=== PATIENT | female | born 1940 | race Caucasian/White ===

== ENCOUNTER 2017-04-26 12:04 | Emergency (ER) | payer MEDICARE ==
[~2017-04-26] VITALS: Wt 45.4 kg
[~2017-04-26 12:04] MED LIST: ASPIRIN325 MG PO; LIPITOR40 MG PO; MOBIC7.5 MG PO; VITAMIN B122500 MCG PO; VITAMIN D34000 UNIT PO
[2017-04-26] MEDS ORDERED: NORCO 5-325 TA1 EACH PO (13:11)
== END 2017-04-26 14:02 | disposition home or self-care (01) ==
LOC: ED 12:04
PROC: 0RS Upper Joints, Reposition (ICD-10-PCS; principal; 2017-04-26)
DX: S52.501A Unspecified fracture of the lower end of right radius, initial encounter for closed fracture (principal); S01.511A Laceration without foreign body of lip, initial encounter; Z88.5 Allergy status to narcotic agent; Z79.82 Long term (current) use of aspirin; Z93.3 Colostomy status; W18.30XA Fall on same level, unspecified, initial encounter
CPT/HCPCS: 25605; 73110; 99283

== ENCOUNTER 2017-04-28 06:55 | Day surgery (SDC) | payer MEDICARE ==
[~2017-04-28] VITALS: Ht 147.3 cm; Wt 42.6 kg
[~2017-04-28 06:55] MED LIST changes: +NORCO 5-325 TA1 EACH PO
--- NOTE | 2017-04-28 09:08 | NUR ---
04/28/17 0907 Priya Moore REPORT FROM PANEL MACHINE TENDER.
--- NOTE | 2017-05-10 09:13 | OR ---
[facility] [address] [place], [place] [address] Signed DATE OF PROCEDURE: 04/28/17 PREOPERATIVE DIAGNOSIS Comminuted displaced distal radial fracture, right. POSTOPERATIVE DIAGNOSIS Comminuted displaced distal radial fracture, right. PROCEDURE Open reduction and internal fixation with distal volar radial plate. SURGEON: Pasha Jenkins MD ANESTHESIA: Axillary block with some sedation. SPECIMENS: None. COMPLICATIONS: None. TOURNIQUET TIME: About 40 minutes. DESCRIPTION OF PROCEDURE The patient was taken to the operating room. After anesthesia was induced and the airway was gently supported, the patient's right upper extremity was positioned, prepped and draped in a routine sterile fashion. The arm was exsanguinated with an Esmarch bandage. Pneumatic tourniquet was inflated to 250 mmHg pressure. We then made a volar incision beginning at the distal wrist flexion crease and extending proximally along the FCR tendon. Skin was divided sharply. Subcutaneous tissue was bluntly spread. The FCR tendon was identified and gently swept in an ulnar direction along with the rest of the volar contents. We elevated a small portion of the pronator from the distal radius and thus exposed the fracture. The fracture was then reduced under direct vision and an 8 x 4 hole distal volar radial plate was positioned under fluoroscopic control. We secured it proximally with four 2.7 mm screws and then distally with four 1.8 mm smooth buttress pins. AP and lateral fluoroscopy seemed to confirm excellent reduction and stable construct with good alignment and position. The wound was gently irrigated and closed in a standard fashion. A sterile dressing and a volar splint were placed. The patient was awakened to the recovery room where he arrived in stable condition. Counts were correct and antibiotic protocols were followed. Electronically Signed By: PASHA JENKINS MD 05/10/17 0913 PATIENT NAME: VIJAY ARROYO OPERATIVE REPORT DATE OF : 38 PHYSICIAN: PASHA JENKINS MD REPORT #: [id number] REPORT IS CONFIDENTIAL AND NOT TO BE RELEASED WITHOUT AUTHORIZATION [address] [place], [place] [address] Signed Pasha Jenkins MD WFTrish/Jonel /[id number] cc: Scot Vieira MD Electronically Signed By: PASHA JENKINS MD 05/10/17 0913 PATIENT NAME: VIJAY ARROYO OPERATIVE REPORT DATE OF : 38 PHYSICIAN: PASHA JENKINS MD REPORT #: [id number] REPORT IS CONFIDENTIAL AND NOT TO BE RELEASED WITHOUT AUTHORIZATION
== END 2017-04-28 10:21 | disposition home or self-care (01) ==
LOC: OPS 06:55 → DS 06:55 → OPS 08:15
PROVIDERS: Orthopaedic Surgery
PROC: 0PSH04Z Reposition Right Radius with Internal Fixation Device, Open Approach (ICD-10-PCS; principal; 2017-04-28 08:15)
DX: S52.501A Unspecified fracture of the lower end of right radius, initial encounter for closed fracture (principal); W01.0XXA Fall on same level from slipping, tripping and stumbling without subsequent striking against object, initial encounter; Z88.5 Allergy status to narcotic agent
CPT/HCPCS: 01830; 64417; 73100; 76942; C1713; J0690; J1100; J2250; J2405; J2704; J2795; J3010; J7120

== ENCOUNTER 2017-05-13 20:58 | Emergency (ER) | payer MEDICARE ==
[~2017-05-13] VITALS: Ht 144.8 cm; Wt 42.6 kg
[2017-05-13] MEDS ORDERED: ASPIRIN81 MG PO (21:23)
[2017-05-14] MEDS ORDERED: MACROBID 100 M100 MG PO (01:06)
--- NOTE | 2017-05-14 08:38 | EKG ---
[facility] [address] [facility] [place], [place] [address] Signed Sinus bradycardia Otherwise normal ECG No previous ECGs available Confirmed by MANASA VASQUEZ MD ([id number]) on 05/14/2017 8:38:39 AM Electronically Signed By: MANASA VASQUEZ MD 05/14/17 0838 PATIENT NAME: VIJAY ARROYO Electrocardiogram DATE OF : 38 PHYSICIAN: MANASA VASQUEZ MD REPORT #: [id number] REPORT IS CONFIDENTIAL AND NOT TO BE RELEASED WITHOUT AUTHORIZATION
== END 2017-05-14 01:25 | disposition home or self-care (01) ==
LOC: ED 20:58
PROC: 0T9B70Z Drainage of Bladder with Drainage Device, Via Natural or Artificial Opening (ICD-10-PCS; principal; 2017-05-13)
DX: R41.82 Altered mental status, unspecified (principal); N39.0 Urinary tract infection, site not specified; Z93.3 Colostomy status; Z98.890 Other specified postprocedural states; Z88.5 Allergy status to narcotic agent; Z79.82 Long term (current) use of aspirin; Z90.49 Acquired absence of other specified parts of digestive tract
CPT/HCPCS: 36415; 51701; 70450; 71010; 81001; 85025; 87088; 93005; 93010; 99284

== ENCOUNTER 2017-12-01 08:49 | Day surgery (SDC) | payer MEDICARE ==
[~2017-12-01] VITALS: Ht 170.2 cm; Wt 44.5 kg
[~2017-12-01 08:49] MED LIST changes: +ASPIRIN81 MG PO; +MACROBID 100 M100 MG PO
[2017-12-01] MEDS ORDERED: ONCE DAILY1 EACH PO (09:13)
[2017-12-01] MEDS ORDERED: VITAMIN D2000 UNI1 PO (09:14)
[2017-12-01] MEDS ORDERED: VITAMIN B-12500 MCG PO (09:14)
[2017-12-01] MEDS ORDERED: OMEPRAZOLE20 MG PO (09:15)
--- NOTE | 2017-12-01 10:54 | NUR ---
12/01/17 1054 Verna Shay 1046 PT ARRIVED DRWOSY AND TALKING. OSTOMY IS CLEAN AND STOMA IS PICK. 1048 PT BACK TO SLEEP.
--- NOTE | 2017-12-02 11:45 | OR ---
[facility] [address] [place], [place] [address] Signed DATE OF OPERATION: 12/01/2017 SURGEON: Ranjit Allen MD UPPER AND LOWER ENDOSCOPY REPORT PREOPERATIVE DIAGNOSES: 1. Anemia. 2. Melena. 3. Gastritis. 4. Villagomez's esophagus. 5. 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 POSTOPERATIVE DIAGNOSES: 1. Distal esophageal tear. 2. Moderate hiatal hernia. 3. Unremarkable colonoscopy. PROCEDURES: 1. EGD with CLOtest and biopsies of the antrum and GE junction and esophageal tear. 2. Colonoscopy without biopsy. ESTIMATED BLOOD LOSS: None. INDICATIONS: Vijay is a 77-year-old lady who I have known for quite a few years. She originally had rectal prolapse and ended up with several surgeries and finally a colostomy in the left upper quadrant. Her transverse colon still prolapses, but it is easily reduced and she has been able to deal with it on a more conservative basis. She is also known to have a history of gastritis with Villagomez's esophagus. More recently, she was having melena through the ostomy site and when her hemoglobin was checked, it was down to 7.9. Her primary care provider sent her into the hospital yesterday for 2 units of packed red blood cells. I had been called and I met Vijay here in the hospital yesterday and we talked and did her history and physical here in the hospital. She comes today then for the upper and lower endoscopy. She says she is feeling better after the 2 units of packed red blood cells. Vijay is very familiar with upper and lower endoscopy. She understands there is risk including, but not limited to gas, bloating, crampy abdominal pain, bleeding, perforation, requiring surgery, and missed diagnosis. She also understands the need for IV conscious sedation. She has expressed understanding wishes Electronically Signed By: RANJIT ALLEN MD 12/02/17 9753 PATIENT NAME: VIJAY ARROYO OPERATIVE REPORT DATE OF : 38 REPORT #: [id number] PHYSICIAN: RANJIT ALLEN MD PCP: CAIO NELSON MD REPORT IS CONFIDENTIAL AND NOT TO BE RELEASED WITHOUT AUTHORIZATION [facility] [address] [place], [place] [address] Signed to proceed. DESCRIPTION OF PROCEDURE: Vijay was taken into our endoscopy suite and placed in the supine semi-recumbent position. For both cases, she was given a total of 4 mg of Versed and 50 mcg of fentanyl. The posterior oropharynx was anesthetized with Hurricaine spray. A bite block was utilized for the case. The adult gastroscope was introduced and advanced under direct visualization of camera, out into the third portion of the duodenum without difficulty. We very carefully examined the duodenum and pyloric channel and found to be unremarkable. However, the stomach did have some old dry blood in it. We looked very carefully around the antrum, incisura body and fundus of the stomach. We could not find any source of bleeding in the stomach itself. There is no ulceration. No serious gastritis to speak of. We went ahead and took biopsies of the antrum for pathologic review as well as CLOtest. Upon retroflexion of the scope, we could easily see her moderate-sized hiatal hernia. We looked carefully around the hiatal hernia and we withdrew the scope up through the area of the hiatal hernia. We looked very carefully and never found a Zita Chaney tear. She does have disruption to the Z-line and so we took a biopsy at the Z-line and then just to the one side, we saw a tear just around at or slightly above the Z-line. I think this has probably been the source of her bleeding. There may or may not have been an ulcer associated with it. We went and took a biopsy of that area. Above this, the esophagus was completely unremarkable. This is the only area we found that would have resulted in bleeding. After this, the gas was suctioned out and the gastroscope removed. Vijay tolerated the procedure quite well. Vijay was then placed in the supine position. We removed her ostomy bag and I was able to easily reduce her prolapse. A digital rectal exam was otherwise unremarkable. We then placed our adult colonoscope through the ostomy and we carefully advanced it over to the cecum itself. We could easily see the pilot point's foot, the appendiceal orifice, and the ileocecal valve. There was fresh clean green bile coming in through the small intestine. The scope was slowly withdrawn. We saw no lesions throughout her colon. After this, the gas was suctioned out and the colonoscope removed. Vijay's colostomy bag was then replaced. She was then taken into recovery room in stable condition. RECOMMENDATIONS: Vijay has already stopped her aspirin and she has been on her Prilosec. I think in due time the esophageal tear is going to heal just fine. I will see her back in the office in a week or so for followup. Ranjit Allen MD Electronically Signed By: RANJIT ALLEN MD 12/02/17 1145 PATIENT NAME: VIJAY ARROYO OPERATIVE REPORT DATE OF : 38 REPORT #: [id number] PHYSICIAN: RANJIT ALLEN MD PCP: CAIO NELSON MD REPORT IS CONFIDENTIAL AND NOT TO BE RELEASED WITHOUT AUTHORIZATION [facility] [address] [place] [address] Signed ALB/MODL /[id number] cc: MD Ranjit Alegre MD Copies: CAIO NELSON MD, ANDREW L MD ~ Electronically Signed By: RANJIT ALLEN MD 12/02/17 1145 PATIENT NAME: VIJAY ARROYO OPERATIVE REPORT DATE OF : 38 REPORT #: [id number] PHYSICIAN: RANJIT ALLEN MD PCP: CAIO NELSON MD REPORT IS CONFIDENTIAL AND NOT TO BE RELEASED WITHOUT AUTHORIZATION
== END 2017-12-01 12:07 | disposition home or self-care (01) ==
LOC: OPS 08:49 → DS 08:49 → OPS 10:30 → DS 10:30 → OPS 12:07
PROVIDERS: Colon & Rectal Surgery
PROC: 0DB78ZX Excision of Stomach, Pylorus, Via Natural or Artificial Opening Endoscopic, Diagnostic (ICD-10-PCS; 2017-12-01)
PROC: 0DB38ZX Excision of Lower Esophagus, Via Natural or Artificial Opening Endoscopic, Diagnostic (ICD-10-PCS; 2017-12-01)
PROC: 0DJD8ZZ Inspection of Lower Intestinal Tract, Via Natural or Artificial Opening Endoscopic (ICD-10-PCS; principal; 2017-12-01 10:30)
PROC: 0DB48ZX Excision of Esophagogastric Junction, Via Natural or Artificial Opening Endoscopic, Diagnostic (ICD-10-PCS; 2017-12-01 10:30)
DX: K92.1 Melena (principal); K29.50 Unspecified chronic gastritis without bleeding; K22.10 Ulcer of esophagus without bleeding; K44.9 Diaphragmatic hernia without obstruction or gangrene; D50.0 Iron deficiency anemia secondary to blood loss (chronic); K21.9 Gastro-esophageal reflux disease without esophagitis; Z98.890 Other specified postprocedural states; Z88.5 Allergy status to narcotic agent; Z79.82 Long term (current) use of aspirin; Z79.52 Long term (current) use of systemic steroids; Z79.899 Other long term (current) drug therapy
CPT/HCPCS: 86677; 88305; 88312; 99153; G0500; J2250; J3010; J7120

== ENCOUNTER 2017-12-02 19:48 | Emergency (ER) | payer MEDICARE ==
[~2017-12-02] VITALS: Ht 147.3 cm; Wt 44.5 kg
--- OUTSIDE RECORDS SUMMARY | ~2017-12-02 | XMS | Clinical Summary ---
Demographics + + + | Address | [address] | | | [place] [address] | + + + | Home Phone | | + + + | Preferred Language | Unknown | + + + | Marital Status | | + + + | Catholic Affiliation | CHR | + + + | Race | White | + + + | Ethnic Group | Not or | + + + Author + + + | Author | [facility] | + + + | Organization | [facility] | + + + [...] Team Providers + +------+ + | Care Cloud Solutions Architect Name | Role | Phone | + +------+ + | Scot Vieira MD | PP | | + +------+ + Source Comments PR[facility]A is fully live on both EpicCare Ambulatory and EpicCare InPatient.[facility] Allergies + + + + + + [...] | | + + + +---------+------+------+-------+ | [place]-3 Fatty | Take 1 capsule by | [...] 07/19/2007 | | | (FLU SHOT) | 7 | | | + + + + + Results Not on filefrom Last 3 Months
--- OUTSIDE RECORDS SUMMARY | ~2017-12-02 | XMS | Clinical Summary ---
Demographics + + + | Address | [address] | | | [place] [address] | + + + | Home Phone | | + + + | Preferred Language | Unknown | + + + | Marital Status | | + + + | Sabianism Affiliation | CHR | + + + | Race | White | + + + | Ethnic Group | Not or | + + + Author + + + | Author | [facility] | + + + | Organization | [facility] | + + [...] Team Providers + +------+ + | Care Welder Tool And Die Name | Role | Phone | + +------+ + | Scot Veiira MD | PP | | + +------+ + Source Comments PR[facility] is fully live on both EpicCare Ambulatory and EpicCare InPatient.[facility] Allergies + + + + + + [...] | | + + + +---------+------+------+-------+ | [place]-3 Fatty | Take 1 capsule by | [...]
[~2017-12-02 19:48] MED LIST changes: +OMEPRAZOLE20 MG PO; +ONCE DAILY1 EACH PO; +VITAMIN B-12500 MCG PO; +VITAMIN D2000 UNI1 PO
--- NOTE | 2017-12-03 05:44 | EKG ---
[facility] [address] [facility] [place], [place] [address] Signed Normal sinus rhythm Normal ECG When compared with ECG of 13-MAY-2017 21:50, No significant change was found Confirmed by GERALDINE PÉREZ MD ([id number]) on 12/03/2017 5:44:01 AM Electronically Signed By: GERALDINE PÉREZ MD 12/03/17 0544 PATIENT NAME: LALA ARROYOZORA BRUNO Electrocardiogram DATE OF : 38 PHYSICIAN: GERALDINE PÉREZ MD REPORT #: [id number] REPORT IS CONFIDENTIAL AND NOT TO BE RELEASED WITHOUT AUTHORIZATION
== END 2017-12-02 22:43 | disposition home or self-care (01) ==
LOC: ED 19:48
DX: E83.51 Hypocalcemia (principal); R07.89 Other chest pain; Z88.5 Allergy status to narcotic agent; Z79.899 Other long term (current) drug therapy
CPT/HCPCS: 70450; 71045; 80053; 85025; 85610; 85730; 93005; 93010; 99284

== ENCOUNTER 2017-12-30 10:22 | Emergency (ER) | payer MEDICARE ==
[~2017-12-30] VITALS: Ht 147.3 cm; Wt 44.5 kg
--- OUTSIDE RECORDS SUMMARY | ~2017-12-30 | XMS | Clinical Summary ---
Demographics + + + | Address | [address] | | | [place] [address] | + + + | Home Phone | | + + + | Preferred Language | Unknown | + + + | Marital Status | | + + + | Hoahaoism Affiliation | CHR | + + + | Race | White | + + + | Ethnic Group | Not or | + + + Author + + + | Author | [facility] | + + + | Organization | [facility] | + + + | Address | Unknown | + + + | Phone | Unavailable | + + + Support + + +---------+ + | Name | Relationship | Address | Phone | + + +---------+ + | MALU BUTLER | ECON | Unknown | | + + +---------+ + | TONI ARROYO | ECON | Unknown | | + + +---------+ + Care Team Providers + +------+ + | Care Robotic Maintenance Technician Name | Role | Phone | + +------+ + | Scot Vieira MD | PP | | + +------+ + Source Comments PR[facility]ILA is fully live on both EpicCare Ambulatory and EpicCare InPatient.[facility] Allergies + + + + + + | Active Allergy | Reactions | Severity | Noted | Comments | | | | | Date | | + + + + + + | Codeine | | | 04/29/20 | Pt states "makes | | | | | 08 | me disoriented" | + + + + + + Current Medications + + + +---------+------+------+-------+ | Prescription | Sig. | Disp. | Refills | Star | End | Statu | | | | | | t | Date | s | | | | | | Date | | | + + + +---------+------+------+-------+ | aspirin chewable | Chew and swallow 81 | | | | | Activ | | 81 mg oral | mg once daily. | | | | | e | | tablet,chewable | | | | | | | + + + +---------+------+------+-------+ | FOLIC ACID/VIT | Take by mouth once | | | | | Activ | | BCOMP,C (B | daily. | | | | | e | | COMPLEX-VITAMIN | | | | | | | | C-FOLIC ACID) 400 | | | | | | | | mcg oral tablet | | | | | | | + + + +---------+------+------+-------+ | VITAMIN E, | Take 1 capsule by | | | | | Activ | | DL,TOCOPHERYL ACET, | mouth once daily. | | | | | e | | (DL-VITAMIN E | | | | | | | | ACETATE) 100 unit | | | | | | | | oral capsule | | | | | | | + + + +---------+------+------+-------+ | cyanocobalamin | Take 1,000 mcg by | | | | | Activ | | (VITAMIN B-12) 1,000 | mouth once daily. | | | | | e | | mcg oral tablet | | | | | | | + + + +---------+------+------+-------+ | pyridoxine, | Take 25 mg by mouth | | | | | Activ | | vitamin B6, 25 mg | once daily. | | | | | e | | oral tablet | | | | | | | + + + +---------+------+------+-------+ | CALCIUM-MAG | Take 1 tablet by | | | | | Activ | | OXIDE-VITAMIN D3 | mouth once daily. | | | | | e | | ORAL | | | | | | | + + + +---------+------+------+-------+ | [place]-3 Fatty | Take 1 capsule by | | | | | Activ | | Acids (FISH OIL) 300 | mouth once daily. | | | | | e | | mg oral capsule | | | | | | | + + + +---------+------+------+-------+ | Cholecalciferol, | Take 5,000 Units by | | | | | Activ | | Vitamin D3, 5,000 | mouth once daily. 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/2009 | + + + | Inguinal hernia | 12/08/2009 | + + + | UTI (urinary tract infection) | 06/26/2008 | + + + + + | Overview: ICD10 | + + + + + | Rectal prolapse | 04/29/2008 | + + + Family History + + +------+ + | Medical History | Relation | Name | Comments | + + +------+ + | Diabetes | Mother | | | + + +------+ + | Non-contributory | Mother | | emphysema, smoker | + + +------+ + | Cancer | Other | | no colorectal cancer or polyps, no cancer | | | | | of any kind | + + +------+ + + +------+--------+ + | Relation | Name | Status | Comments | + +------+--------+ + | Mother | | | | + +------+--------+ + | Other | | | | + +------+--------+ + Social History + +-------+ +--------+------+ | Tobacco Use | Types | Packs/Day | Years | Date | | | | | Used | | + +-------+ +--------+------+ | Never Smoker | | | | | + +-------+ +--------+------+ + +---+---+---+ | Smokeless Tobacco: | | | | | Never Used | | | | + +---+---+---+ + + +---------+ + | Alcohol Use | Drinks/We | oz/Week | Comments | | | ek | | | + + +---------+ + | No | 0 | 0.0 | | | | Standard | | | | | drinks or | | | | | | | | | | equivalen | | | | | t | | | + + +---------+ + + + + | Sex Assigned at | Date Recorded | | | | + + + | Not on file | | + + + Last Filed Vital Signs + + + + | Vital Sign | Reading | Time Taken | + + + + | Blood Pressure | 110/73 | 06/05/2016 8:30 AM PDT | + + + + | Pulse | 66 | 06/05/2016 8:30 AM PDT | + + + + | Temperature | 36.8 C (98.2 F) | 06/05/2016 8:30 AM PDT | + + + + | Respiratory Rate | 15 | 06/05/2016 8:30 AM PDT | + + + + | Oxygen Saturation | 98% | 06/05/2016 8:30 AM PDT | + + + + | Inhaled Oxygen | - | - | | Concentration | | | + + + + | Weight | 45.6 kg (100 lb 8.5 | 06/03/2016 4:33 AM PDT | | | oz) | | + + + + | Height | 147.3 cm (4' 10") | 06/01/2016 3:59 PM PDT | + + + + | Body Mass Index | 21.01 | 06/03/2016 4:33 AM PDT | + + + + Plan of Treatment + + + + + | Health Maintenance | Due Date | Last Done | Comments | + + + + + | MAMMOGRAM | | | | | | 9 | | | + + + + + | PNEUMOCOCCAL ADULT | | | | | (1 of 2 - PCV13) | 4 | | | + + + + + | INFLUENZA VACCINE | | 07/19/2007 | | | (FLU SHOT) | 8 | | | + + + + + Results Not on filefrom Last 3 Months
--- OUTSIDE RECORDS SUMMARY | ~2017-12-30 | XMS | Clinical Summary ---
Demographics + + + | Address | [address] | | | [place] [address] | + + + | Home Phone | | + + + | Preferred Language | Unknown | + + + | Marital Status | Single | + + + | Rastafarian Affiliation | 1013 | + + + | Race | Unknown | + + + | Ethnic Group | Unknown | + + + Author + + + | Author | [facility] | | | and [place] | + + + | Organization | [facility] | | | and [place] | + + + | Address | Unknown | + + + | Phone | Unavailable | + + + Support + + + + + | Name | Relationship | Address | Phone | + + + + + | Gabrielle Patel | ECON | [place] | | + + + + + Care Team Providers + +------+ + | Care Museum Preparator Name | Role | Phone | + +------+ + | Scot Vieira MD | PP | | + +------+ + Allergies + + + + + + | Active Allergy | Reactions | Severity | Noted | Comments | | | | | Date | | + + + + + + | Codeine | Other (See Comments) | | 02/22/20 | Disoriented | | | | | 16 | | + + + + + + Current Medications + + +-------+---------+------+------+-------+ | Prescription | Sig. | Disp. | Refills | Star | End | Statu | | | | | | t | Date | s | | | | | | Date | | | + + +-------+---------+------+------+-------+ | aspirin 81 mg | Take 81 mg by mouth | | | | | Activ | | chewable tablet | Daily. | | | | | e | + + +-------+---------+------+------+-------+ | MULTIPLE VITAMINS | Take by mouth. | | | | | Activ | | PO | | | | | | e | + + +-------+---------+------+------+-------+ | folic acid-vitamin | Take 2 tablets by | | | | | Activ | | B6-vitamin B12 | mouth Daily. | | | | | e | | (FOLTAB) | | | | | | | | 0.8-10-0.115 mg TABS | | | | | | | + + +-------+---------+------+------+-------+ | tocopherol | Take 100 Units by | | | | | Activ | | (VITAMIN E) 100 | mouth Daily. | | | | | e | | units capsule | | | | | | | + + +-------+---------+------+------+-------+ Active Problems + + | Patient Care Coordination Note | + + | Insulin Ab negative | + + + + + | Problem | Noted Date | + + + | Hypoglycemia | 02/22/2016 | + + + | Hypokalemia | 02/22/2016 | + + + | Rectal prolapse | 02/22/2016 | + + + | Gastric distention | 02/22/2016 | + + + Family History + + +------+ + | Medical History | Relation | Name | Comments | + + +------+ + | Diabetes | Mother | | | + + +------+ + | Heart failure | Mother | | | + + +------+ + + +------+ + + | Relation | Name | Status | Comments | + +------+ + + | Father | | | does not know medical history | + +------+ + + | Mother | | | | + +------+ + + | Sister | | Alive | healthy | + +------+ + + Social History + +-------+ +--------+------+ | Tobacco Use | Types | Packs/Day | Years | Date | | | | | Used | | + +-------+ +--------+------+ | Never Smoker | | | | | + +-------+ +--------+------+ + + +---------+ + | Alcohol Use | Drinks/We | oz/Week | Comments | | | ek | | | + + +---------+ + | No | 0 | 0.0 | Was a social drinker when younger | | | Standard | | | [...] + + + | Blood Pressure | 123/84 | 02/24/2016 0800 PDT | + + + + | Pulse | 60 | 02/24/2016799 PDT | + + + + | Temperature | 36.1 C (96.9 F) | 02/24/2016799 PDT | + + + + | Respiratory Rate | 18 | 02/24/2016799 PDT | + + + + | Oxygen Saturation | 93% | 02/24/2016799 PDT | + + + + | Inhaled Oxygen | - | - | | Concentration | | | + + + + | Weight | 47 kg (103 lb 9.9 | 02/22/20163 PDT | | | oz) | | + + + + | Height | 149.9 cm (4' 11.02") | 02/22/20162117 PDT | + + + + | Body Mass Index | 20.92 | 02/22/20162212 PDT | + + + + Plan of Treatment + + + + + | Health Maintenance | Due Date | Last Done | Comments | + + + + + | Vaccine: | | | | | Dtap/Tdap/Td (1 - | 8 | | | | Tdap) | | | | + + + + + | Vaccine: Zoster (#1) | | | | | | 9 | | | + + + + + | Vaccine: | | | | | Pneumococcal 65+ | 4 | | | | Low/Medium Risk (1 | | | | | of 2 - PCV13) | | | | + + + + + | Vaccine: Influenza | | | | | (Season Ended) | 8 | | | + + + + + Results Not on filefrom Last 3 Months Insurance + +--------+ +--------+ +---------+ | Payer | Benefi | Subscriber | Type | Phone | Address | | | t Plan | ID | | | | | | / | | | | | | | Group | | | | | + +--------+ +--------+ +---------+ | MEDICARE | MEDICA | xxxxxxxxxx | Medica | [phone] | | | RE | | re | [phone] | | | | PART A | | | | | | | AND B | | | | | + +--------+ +--------+ +---------+ | BCBS | BCBS | [phone] | PPO | | | | | OUT OF | xxx | | | | | | STATE | | | | | | | PPO | | | | | + +--------+ +--------+ +---------+ + +--------+ +--------+ + + | Guarantor Name | Accoun | Relation to | Date | Phone | Billing Address | | | t Type | Patient | of | | | | | | | | | | + +--------+ +--------+ + + | VIJAY ARROYO | Person | Self [birth year] Home: | [address] | | | al/Fam | | 1940 | [phone] | [place] [address] | | | timothy | | | 1823 | | + +--------+ +--------+ + +
--- OUTSIDE RECORDS SUMMARY | ~2017-12-30 | XMS | Clinical Summary ---
Demographics + + + | Address | [address] | | | [place] [address] | + + + | Home Phone | | + + + | Preferred Language | Unknown | + + + | Marital Status | Single | + + + | Islam Affiliation | 1013 | + + + | Race | Unknown | + + + | Ethnic Group | Unknown | + + + Author + + + | Author | [facility] | | | and [place] | + + + | Organization | [facility] | | | and [place] | [...] Team Providers + +------+ + | Care Health Diagnostics Teacher Name | Role | Phone | + [...] | Self | [birth year] | Home: | [address] | | | al/Fam | | 1940 | [phone] | [place] [address] | | | timothy | | | 1823 | | + +--------+ +--------+ + +
--- OUTSIDE RECORDS SUMMARY | ~2017-12-30 | XMS | Clinical Summary ---
Demographics + + + | Address | [address] | | | [place] [address] | + + + | Home Phone | | + + + | Preferred Language | Unknown | + + + | Marital Status | | + + + | Adventism Affiliation | Unknown | + + + | Race | Unknown | + + + | Ethnic Group | Unknown | + + + Author + + + | Author | [facility] | + + + | Organization | [facility] | + + + | Address | Unknown | + + + | Phone | Unavailable | + + + Support + + + + + | Name | Relationship | Address | Phone | + + + + + | Cruz Lord | ECON | [place] | | | | | [address] | | + + + + + Care Team Providers + +------+ + | Care Second Helper Name | Role | Phone | + +------+ + | Clinic, [facility] | PP | Unavailable | | Community | | | + +------+ + Allergies Not on File Current Medications Not on file Active Problems Not on file Social History + +-------+ +--------+------+ | Tobacco Use | Types | Packs/Day | Years | Date | | | | | Used | | + +-------+ +--------+------+ | Never Assessed | | | | | + +-------+ +--------+------+ + + + | Sex Assigned at | Date Recorded | | | | + + + | Not on file | | + + + Plan of Treatment Not on file Results Not on filefrom Last 3 Months"
--- OUTSIDE RECORDS SUMMARY | ~2017-12-30 | XMS | Clinical Summary ---
Demographics + + + | Address | [address] | | | [place] [address] | + + + | Home Phone | | + + + | Preferred Language | Unknown | + + + | Marital Status | | + + + | Worship Affiliation | CHR | + + + | Race | White | + + + | Ethnic Group | Not or | + + + Author + + + | Author | [facility] | + + + | Organization | [facility] | + + + [...] Team Providers + +------+ + | Care Core Layer Machine Operator Name | Role | Phone | + +------+ + | Scot Vieira MD | PP | | + +------+ + Source Comments PRISCILA is fully live on both EpicCare Ambulatory and EpicCare InPatient.[facility] Allergies + + + + + + [...] | | + + + +---------+------+------+-------+ | Mahomet-3 Fatty | Take 1 capsule by | [...]
--- OUTSIDE RECORDS SUMMARY | ~2017-12-30 | XMS | Clinical Summary ---
Demographics + + + | Address | [address] | | | [place] [address] | + + + | Home Phone | | + + + | Preferred Language | Unknown | + + + | Marital Status | | + + + | Uatsdin Affiliation | Unknown | + + + | Race | Unknown | + + + | Ethnic Group | Unknown | + + + Author + + + | Author | [facility] | + + + | Organization | [facility] | + + + | Address | Unknown | + + + | Phone | Unavailable | + + + Support + + + + + | Name | Relationship | Address | Phone | + + + + + | Cruz Lord | E[place] | [place] | | | | | [address] | | + + + + + Care Team Providers + +------+ + | Care Dag Coater Name | Role | Phone | + +------+ + | Clinic, [facility] | PP | Unavailable | | Community [...]
== END 2017-12-30 12:29 | disposition home or self-care (01) ==
LOC: ED 10:22
DX: K94.09 Other complications of colostomy (principal); Z88.5 Allergy status to narcotic agent; Z79.899 Other long term (current) drug therapy
CPT/HCPCS: 80053; 85025; 85610; 99283

== ENCOUNTER 2021-07-24 22:09 | Emergency (ER) | payer MEDICARE, OTHER ==
[~2021-07-24] VITALS: Ht 147.3 cm; Wt 41.4 kg
[2021-07-25] MEDS ORDERED: ASPIRIN81 MG PO (00:13)
[2021-07-25] MEDS ORDERED: PLAVIX75 MG PO (00:13)
--- NOTE | 2021-07-25 13:23 | EKG ---
[facility] [address] [place], [place] [address] Signed Normal sinus rhythm Normal ECG When compared with ECG of 27-FEB-2019 12:37, No significant change was found Confirmed by JOSHUA PHILLIPS DO ([id number]) on 07/25/2021 1:22:54 PM Electronically Signed By: JOSHUA PHILLIPS DO 07/25/21 1323 PATIENT NAME: VIJAY ARROYO DAMION Electrocardiogram DATE OF : 38 PHYSICIAN: JOSHUA PHILLIPS DO REPORT #: [id number] REPORT IS CONFIDENTIAL AND NOT TO BE RELEASED WITHOUT AUTHORIZATION
== END 2021-07-25 00:58 | disposition home or self-care (01) ==
LOC: ED 22:09
DX: I63.9 Cerebral infarction, unspecified (principal); R47.01 Aphasia; Z20.822 Contact with and (suspected) exposure to COVID-19; Z88.5 Allergy status to narcotic agent; Z79.899 Other long term (current) drug therapy
CPT/HCPCS: 70450; 70496; 70498; 71045; 80053; 85025; 85610; 85730; 93005; 93010; 99285-25; C9803; Q9967; U0003

== ENCOUNTER 2021-07-27 05:34 | Emergency (ER) | payer MEDICARE, OTHER ==
[~2021-07-27] VITALS: Ht 144.8 cm; Wt 41.5 kg
[~2021-07-27 05:34] MED LIST changes: +PLAVIX75 MG PO
--- OUTSIDE RECORDS SUMMARY | 2021-07-27 05:42 | XMS ---
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 Care History Medical/Surgical 01/02/2018 [facility] - PATIENT HAS A PCP- DR NELSON. - PATIENT HAS A FOLLOW UP APT WITH DR NELSON ON 03/07/19. - Patient is being followed up with by Dr Donaldson for colostomy care. - CHW scheduled next apt with Dr Donaldson for follow up care on 01/05/18 @ 4:05pm. Care Recommendation: This patient has had 5 or more Emergency Department visits in the last 12 months.\T\nbsp; Patient requires education on the scope and purpose of the ED as an acute care provider not a Primary Care Provider and should not be utilized for chronic conditions.\T\nbsp; If patient returns to ED please contact Community Health WorkerFlorinda at [phone]. These are guidelines and the provider should exercise clinical judgment when providing care. E.D. VISIT COUNT (12 MO.) [address] [facility] TOTAL 2 NOTE: Visits indicate total known visits. ED/UCC VISIT TRACKING (12 MO.) 07/27/2021 05:35 [facility] TYPE: Emergency COMPLAINT: - FOLLOW UP 07/24/2021 22:10 [facility] TYPE: Emergency COMPLAINT: - ALTERED MENTAL STATUS INPATIENT VISIT TRACKING (12 MO.) No inpatient visits to display in this time frame [email or web address]
== END 2021-07-27 08:23 | disposition home or self-care (01) ==
LOC: ED 05:34
DX: R47.01 Aphasia (principal); Z86.73 Personal history of transient ischemic attack (TIA), and cerebral infarction without residual deficits; Z88.5 Allergy status to narcotic agent; Z79.02 Long term (current) use of antithrombotics/antiplatelets; Z79.82 Long term (current) use of aspirin; Z79.899 Other long term (current) drug therapy
CPT/HCPCS: 70544; 70551; 99283-25

== ENCOUNTER 2022-03-08 15:17 | Emergency (ER) | payer MEDICARE, OTHER ==
[~2022-03-08] VITALS: Ht 144.8 cm; Wt 41.4 kg
[2022-03-08] MEDS ORDERED: ALENDRONATE SOD70 MG PO (16:00)
--- NOTE | 2022-03-09 20:20 | EKG ---
[facility] [address] [place] [address] Signed Sinus bradycardia Otherwise normal ECG When compared with ECG of 24-JUL-2021 23:04, Nonspecific T wave abnormality no longer evident in Inferior leads Confirmed by GERALDINE PÉREZ MD ([id number]) on 03/09/2022 8:20:08 PM Electronically Signed By: GERALDINE PÉREZ MD 03/09/22 2020 PATIENT NAME: VIJAY ARROYO Electrocardiogram DATE OF : 38 PHYSICIAN: GERALDINE PÉREZ MD REPORT #: [id number] REPORT IS CONFIDENTIAL AND NOT TO BE RELEASED WITHOUT AUTHORIZATION
== END 2022-03-08 18:17 | disposition home or self-care (01) ==
LOC: ED 15:17
DX: G45.9 Transient cerebral ischemic attack, unspecified (principal); E83.42 Hypomagnesemia; Z79.899 Other long term (current) drug therapy; Z79.82 Long term (current) use of aspirin; Z88.5 Allergy status to narcotic agent
CPT/HCPCS: 36415; 70450; 71045; 80053; 81001; 83735; 84484; 85025; 93005; 93010

== ENCOUNTER 2023-07-22 12:19 | Emergency (ER) | payer MEDICARE, OTHER ==
[~2023-07-22] VITALS: Ht 144.8 cm; Wt 39.2 kg
[~2023-07-22 12:19] MED LIST changes: +ALENDRONATE SOD70 MG PO
[2023-07-22] MEDS ORDERED: ATORVASTATIN CA40 MG PO (12:36)
[2023-07-22] MEDS ORDERED: METOPROLOL TART25 MG PO (12:36)
[2023-07-22 13:29] LABS: BASOPHILS 0.6 % (0-2); EOSINOPHILS 0.3 % (0-6); HEMATOCRIT 39.2 % (35.0-50.0); HEMOGLOBIN 13.3 g/dL (12.0-18.0); LYMPHOCYTES 19.6 % (24-44); MCV 94.1 fl (81-99); MONOCYTES 8.6 % (0-12); NEUTROPHILS 70.9 % (39-80); PLATELET COUNT 170 K/uL (140-440); RBC 4.17 M/ul (4.3-5.7); RDW 13.4 (10.5-15.0)
[2023-07-22 13:36] LABS: BILIRUBIN, URINE NEGATIVE (negative); BLOOD/HGB, URINE NEGATIVE (Negative); KETONE, URINE NEGATIVE (Negative); LEUK ESTERASE, URINE NEGATIVE (negative); NITRITE, URINE NEGATIVE (negative); PH, URINE 6.5 (5-7)
[2023-07-22 13:42] LABS: INR 1.02 (0.80-1.30)
[2023-07-22 13:45] LABS: ALBUMIN 3.3 g/dL (3.4-5.0); ALBUMIN/GLOBULIN RATIO 1.03 (1.1-2.4); ANION GAP 12.7 (7-21); BILIRUBIN, TOTAL 0.3 ng/dL (0.2-1.0); BUN/CREATININE RATIO 15.94 (6.0-28.6); CALCIUM 8.8 mg/dL (8.5-10.1); CREATININE, SERUM 0.69 mg/dL (0.55-1.02); POTASSIUM 3.7 mmol/L (3.5-5.1); PROTEIN, TOTAL 6.5 g/dL (6.4-8.2)
[2023-07-22] MEDS ORDERED: TRAMADOL HCL50 MG PO (16:14)
[2023-07-22 16:38] VITALS: BP 162/87
== END 2023-07-22 16:40 | disposition home or self-care (01) ==
LOC: ED 12:19
PROVIDERS: Family Medicine
DX: R54 Age-related physical debility (principal); R51.9 Headache, unspecified; Z88.5 Allergy status to narcotic agent; Z79.899 Other long term (current) drug therapy
CPT/HCPCS: 36415; 70450; 80053; 81003; 85025; 85610; 96372; 99284-25; J3010

== ENCOUNTER 2024-04-06 20:06 | Emergency (ER) | payer MEDICARE, OTHER ==
[~2024-04-06] VITALS: Ht 144.8 cm; Wt 44.5 kg
[~2024-04-06 20:06] MED LIST changes: +ATORVASTATIN CA40 MG PO; +METOPROLOL TART25 MG PO; +TRAMADOL HCL50 MG PO
[2024-04-06] MEDS ORDERED: DONEPEZIL HCL5 MG PO (20:26)
[2024-04-06] MEDS ORDERED: HYDROmorphone HCL 1 MG/ML SYR IV PRN (21:00)
[2024-04-06] MEDS ORDERED: propofoL 200 MG/20 ML VIAL IV ONE (22:45)
[2024-04-07] MEDS ORDERED: TRAMADOL HCL50 MG PO (00:29)
[2024-04-07] MEDS ORDERED: TRAMADOL HCL 50 MG HOME.PACK PO ONE (00:45)
[2024-04-07 01:04] VITALS: BP 140/76
== END 2024-04-07 01:04 | disposition home or self-care (01) ==
LOC: ED 20:06
DX: S43.015A Anterior dislocation of left humerus, initial encounter (principal); S43.035A Inferior dislocation of left humerus, initial encounter; W18.30XA Fall on same level, unspecified, initial encounter; Y92.009 Unspecified place in unspecified non-institutional (private) residence as the place of occurrence of the external cause; Z86.73 Personal history of transient ischemic attack (TIA), and cerebral infarction without residual deficits; Z88.5 Allergy status to narcotic agent; Z79.82 Long term (current) use of aspirin; Z79.899 Other long term (current) drug therapy
CPT/HCPCS: 73020; 73030; 73080; A9270; J1170; J2704

== ENCOUNTER 2024-05-29 01:24 | Emergency (ER) | payer MEDICARE, OTHER ==
[~2024-05-29] VITALS: Ht 144.8 cm; Wt 40.0 kg
[~2024-05-29 01:24] MED LIST changes: +DONEPEZIL HCL5 MG PO
[2024-05-29] MEDS ORDERED: ARICEPT5 MG PO (01:42)
[2024-05-29 02:07] LABS: BASOPHILS 1.7 % (0-2); EOSINOPHILS 2.5 % (0-6); HEMATOCRIT 39.4 % (35.0-50.0); HEMOGLOBIN 13.1 g/dL (12.0-18.0); LYMPHOCYTES 33.7 % (24-44); MCH 31.4 (27-36); MCHC 33.2 g/dl (30-36); MCV 94.6 fl (81-99); MONOCYTES 13.2 % (0-12); NEUTROPHILS 48.9 % (39-80); PLATELET COUNT 173 K/uL (140-440); RBC 4.17 M/ul (4.3-5.7)
[2024-05-29 02:23] LABS: ALBUMIN/GLOBULIN RATIO 0.86 (1.1-2.4); ANION GAP 9.8 (7-21); BILIRUBIN, TOTAL 0.3 ng/dL (0.2-1.0); BUN/CREATININE RATIO 22.66 (6.0-28.6); CALCIUM 9.2 mg/dL (8.5-10.1); CREATININE, SERUM 0.75 mg/dL (0.55-1.02); POTASSIUM 3.8 mmol/L (3.5-5.1); PROTEIN, TOTAL 6.5 g/dL (6.4-8.2)
[2024-05-29 02:29] LABS: BILIRUBIN, URINE NEGATIVE (negative); BLOOD/HGB, URINE NEGATIVE (Negative); KETONE, URINE NEGATIVE (Negative); LEUK ESTERASE, URINE NEGATIVE (negative); NITRITE, URINE NEGATIVE (negative); PH, URINE 7.5 (5-7)
[2024-05-29 03:05] VITALS: BP 140/72
== END 2024-05-29 03:05 | disposition home or self-care (01) ==
LOC: ED 01:24
PROVIDERS: Family Medicine
DX: F03.A0 Unspecified dementia, mild, without behavioral disturbance, psychotic disturbance, mood disturbance, and anxiety (principal); K94.09 Other complications of colostomy; E78.5 Hyperlipidemia, unspecified; M81.0 Age-related osteoporosis without current pathological fracture; M41.9 Scoliosis, unspecified; Z90.49 Acquired absence of other specified parts of digestive tract; Z86.73 Personal history of transient ischemic attack (TIA), and cerebral infarction without residual deficits; Z88.5 Allergy status to narcotic agent; Z79.82 Long term (current) use of aspirin; Z79.83 Long term (current) use of bisphosphonates; Z79.899 Other long term (current) drug therapy
CPT/HCPCS: 36415; 80053; 81003; 85025; 99283

== ENCOUNTER 2025-01-23 18:05 | Emergency (ER) | payer MEDICARE, OTHER ==
[~2025-01-23] VITALS: Ht 144.8 cm; Wt 38.3 kg
[~2025-01-23 18:05] MED LIST changes: +ARICEPT5 MG PO
[2025-01-23] MEDS ORDERED: HYDROCODONE BIT/ACETAMINOPHEN 5/325 MG 1 TAB HOME.PACK PO PRN (20:30)
[2025-01-23] MEDS ORDERED: HYDROCODON-ACE1 EA10 PO (20:36)
[2025-01-23 21:07] VITALS: BP 127/89
== END 2025-01-23 21:05 | disposition home or self-care (01) ==
LOC: ED 18:05
DX: S22.089A Unspecified fracture of T11-T12 vertebra, initial encounter for closed fracture (principal); W18.30XA Fall on same level, unspecified, initial encounter; E78.5 Hyperlipidemia, unspecified; Z79.899 Other long term (current) drug therapy; Z86.73 Personal history of transient ischemic attack (TIA), and cerebral infarction without residual deficits
CPT/HCPCS: 70450; 71250; 72125; 74176; 99283-25; A9270

== ENCOUNTER 2025-01-30 10:37 | Emergency (ER) | payer MEDICARE, OTHER ==
[~2025-01-30] VITALS: Ht 144.8 cm; Wt 38.0 kg
[~2025-01-30 10:37] MED LIST changes: +HYDROCODON-ACE1 EA10 PO
[2025-01-30 11:55] LABS: BASOPHILS 0.5 % (0.1-1.2); EOSINOPHILS 0.3 % (0.7-5.8); HEMATOCRIT 36.6 % (34.1-44.9); HEMOGLOBIN 12.3 g/dL (11.2-15.7); LYMPHOCYTES 11.5 % (19.3-51.7); MCH 30.4 PG (25.6-32.2); MCHC 33.6 g/dL (32.2-35.5); MCV 90.6 fL (79.4-94.8); MONOCYTES 8.9 % (4.7-12.5); NEUTROPHILS 78.4 % (34.0-71.1); RBC 4.04 M/uL (3.93-5.22)
[2025-01-30 12:10] LABS: ALBUMIN 2.9 g/dL (3.4-5.0); ALBUMIN/GLOBULIN RATIO 0.71 (1.1-2.4); ALCOHOL, MEDICAL <3 ng/dL (<3); ALKALINE PHOSPHATASE 85 U/L (46-116); ALT (SGPT) 23 U/L (14-59); ANION GAP 10.5 (7-21); AST (SGOT) 25 U/L (15-37); BILIRUBIN, TOTAL 0.7 mg/dL (0.2-1.0); BUN/CREATININE RATIO 19.64 (6.0-28.6); CALCIUM 9.1 mg/dL (8.5-10.1); CARBON DIOXIDE 30 mmol/L (21-32); CHLORIDE 104 mmol/L (98-107); CREATININE, SERUM 0.56 mg/dL (0.55-1.02); GLOMERULAR FILTRATION RATE,EST 89 mL/min (>60); POTASSIUM 3.5 mmol/L (3.5-5.1); UREA NITROGEN 11 mg/dL (7-18)
[2025-01-30 12:12] LABS: PLATELET COUNT 233 K/uL (182-369)
[2025-01-30 15:25] VITALS: BP 115/100
== END 2025-01-30 15:25 | disposition home or self-care (01) ==
LOC: ED 10:37
PROVIDERS: Emergency Medicine
DX: R29.6 Repeated falls (principal); E78.5 Hyperlipidemia, unspecified; Z79.899 Other long term (current) drug therapy; Z88.5 Allergy status to narcotic agent
CPT/HCPCS: 36415; 51702; 70450; 71045; 72170; 80053; 80307; 85025; 85060; 99284-25; G0480

== ENCOUNTER 2025-02-17 12:30 | Inpatient (IN) | payer MEDICARE, OTHER ==
[~2025-02-17] VITALS: Ht 144.8 cm; Wt 97.0 kg
[2025-02-17] MEDS ORDERED: OLANZAPINE2.5 MG PO (13:09)
[2025-02-17 14:02] LABS: BASOPHILS 0.5 % (0.1-1.2); EOSINOPHILS 0.1 % (0.7-5.8); HEMOGLOBIN 11.4 g/dL (11.2-15.7); LYMPHOCYTES 8.5 % (19.3-51.7); MCHC 32.6 g/dL (32.2-35.5); MCV 92.1 fL (79.4-94.8); MONOCYTES 8.9 % (4.7-12.5); NEUTROPHILS 81.8 % (34.0-71.1); PLATELET COUNT 279 K/uL (182-369)
[2025-02-17 14:18] LABS: ALBUMIN 2.5 g/dL (3.4-5.0); ALBUMIN/GLOBULIN RATIO 0.6 (1.1-2.4); ANION GAP 8.7 (7-21); BILIRUBIN, TOTAL 0.7 mg/dL (0.2-1.0); BUN/CREATININE RATIO 21.62 (6.0-28.6); CALCIUM 8.7 mg/dL (8.5-10.1); CREATININE, SERUM 0.74 mg/dL (0.55-1.02); POTASSIUM 3.7 mmol/L (3.5-5.1); PROTEIN, TOTAL 6.7 g/dL (6.4-8.2)
[2025-02-17 14:23] LABS: LACTIC ACID, BLOOD 0.7 mmol/L (0.4-2.0)
[2025-02-17 16:12] LABS: BILIRUBIN, URINE NEGATIVE (negative); BLOOD/HGB, URINE NEGATIVE (Negative); KETONE, URINE NEGATIVE (Negative); LEUK ESTERASE, URINE NEGATIVE (negative); NITRITE, URINE NEGATIVE (negative)
[2025-02-17 16:17] LABS: BACTERIA, URINE NONE SEEN /hpf (negative); CASTS, URINE NONE SEEN \\lpf; COLLECTION TYPE, URINE CLEAN CATCH; CRYSTALS, URINE NONE SEEN (0-1+); EPITHELIAL CELLS, URINE SQUAMOUS 1+ /lpf (0-1+); RED BLOOD CELLS, URINE 0-1 /hpf (0-5); REFLEX CULTURE, URINE No (No); WHITE BLOOD CELLS, URINE 0-1 /HPF (0-5)
[2025-02-17] MEDS ORDERED: SODIUM CHLORIDE 0.9% 1,000 ML IV SCH (18:45)
[2025-02-17] MEDS ORDERED: ondansetron HCL 4 MG/2 ML VIAL IV PRN (18:45)
[2025-02-17] MEDS ORDERED: ACETAMINOPHEN 325 MG TAB PO PRN (18:45)
--- NOTE | 2025-02-17 18:47 | EKG ---
[facility] [address] [facility] [place] [address] Signed Normal sinus rhythm Normal ECG When compared with ECG of 08-MAR-2022 16:27, No significant change was found Confirmed by Maria Ceja MD () on 02/17/2025 6:47:11 PM Electronically Signed By: MARIA CEJA MD 02/17/25 1847 PATIENT NAME: VIJAY ARROYO DAMION Electrocardiogram DATE OF : 38 PHYSICIAN: MARIA CEJA MD REPORT #: [id number] REPORT IS CONFIDENTIAL AND NOT TO BE RELEASED WITHOUT AUTHORIZATION
[2025-02-17 19:08] VITALS: BP 116/56
--- NOTE | 2025-02-17 19:12 | NUR ---
PT ARRIVED TO ROOM 121 FROM ER. RECEIVED BEDSIDE REPORT. PT ALERT, ORIENTED TO PERSON AND PLACE, DISORIENTED TO TIME AND SITUATION. COLOSTOMY INTACT. SUPPORTIVE FAMILY AT BEDSIDE. ORIENTED TO PLAN OF CARE. CALL LIGHT IN REACH, BED ALARM ACTIVE
[2025-02-17 19:56] VITALS: BP 116/56
--- NOTE | 2025-02-17 21:21 | NUR ---
PT ALERT IN BED, SUPPORTIVE FAMILY AT BEDSIDE. OTHER RN BROUGHT MEAL BOX FOR PT, TOLERATING WELL. NO NEEDS, CALL LIGHT IN REACH, BED ALARM ACTIVE
[2025-02-18] VITALS (8 sets, daily range): BP systolic 115–158; BP diastolic 61–85
--- NOTE | 2025-02-18 00:23 | NUR ---
GIVEN PRN TYLENOL FOR MILD NECK PAIN. PUREWICK READJUSTED. NO OTHER NEEDS, CALL LIGHT IN REACH, BED ALARM ACTIVE
--- NOTE | 2025-02-18 01:52 | NUR ---
PT RESTING IN BED WITH EYES CLOSED, RISE AND FALL OF CHEST OBSERVED. CALL LIGHT IN REACH
--- NOTE | 2025-02-18 02:36 | NUR ---
REPOSITIONED PT, CHANGED COLOSTOMY BAG. PT C/O PAIN OF NECK AFTER TYLENOL. APPLIED HEAT TO GOOD EFFECT. NO OTHER NEEDS, CALL LIGHT IN REACH, BED ALARM ACTIVE
--- NOTE | 2025-02-18 04:45 | NUR ---
PT RESTING IN BED WITH EYES CLOSED, THOUGH WAKES EASILY. NEUROVASCULAR ASSESSMENT UNCHANGED. NO OTHER NEEDS, CALL LIGHT IN REACH
--- NOTE | 2025-02-18 05:15 | NUR ---
VITALS, CHANGED [place], I&OS. PT DENIES PAIN PRESENTLY. CALL LIGHT IN REACH, BED ALARM ACTIVE
[2025-02-18 05:17] LABS: BASOPHILS 0.9 % (0.1-1.2); EOSINOPHILS 0.9 % (0.7-5.8); HEMATOCRIT 33.5 % (34.1-44.9); HEMOGLOBIN 10.9 g/dL (11.2-15.7); LYMPHOCYTES 16.5 % (19.3-51.7); MCH 29.9 PG (25.6-32.2); MCHC 32.5 g/dL (32.2-35.5); MCV 91.8 fL (79.4-94.8); MONOCYTES 11.4 % (4.7-12.5); PLATELET COUNT 259 K/uL (182-369); RBC 3.65 M/uL (3.93-5.22)
[2025-02-18 05:34] LABS: ALBUMIN 2.3 g/dL (3.4-5.0); ALBUMIN/GLOBULIN RATIO 0.58 (1.1-2.4); ANION GAP 9.4 (7-21); BILIRUBIN, TOTAL 0.7 mg/dL (0.2-1.0); BUN/CREATININE RATIO 20.4 (6.0-28.6); CALCIUM 8.5 mg/dL (8.5-10.1); CHOLESTEROL/HDL RATIO 1.7; CREATININE, SERUM 0.49 mg/dL (0.55-1.02); MAGNESIUM 1.3 mg/dL (1.8-2.4); PHOSPHORUS, INORGANIC 2.9 mg/dL (2.5-4.9); POTASSIUM 3.4 mmol/L (3.5-5.1); PROTEIN, TOTAL 6.3 g/dL (6.4-8.2)
--- NOTE | 2025-02-18 07:32 | NUR ---
REPORT FROM CLAY MILLER.
--- NOTE | 2025-02-18 07:44 | NUR ---
MORNING ASSESSMENT IS COMPLETE. PATIENT DENIES PAIN, ALTHOUGH HAS WARM PACK TO BACK OF NECK. COLOSTOMY IS NOTED WITH BROWN OUTPUT. BILATERAL 2+ LOWER LEG EDEMA. NEURO CHECK IS APPROPRIATE FOR AGE, NO DEFICITS NOTED. NO OTHER NEEDS AT THIS TIME.
[2025-02-18] MEDS ORDERED: POTASSIUM CHLORIDE 10 MEQ TABCR PO ONE (08:15)
[2025-02-18] MEDS ORDERED: MAGNESIUM SULFATE 2 GM/50 ML BAG IV SCH (08:15)
--- NOTE | 2025-02-18 08:47 | NUR ---
IV MAGNESIUM IS INFUSING FOR ONE HOUR. PATIENT GIVEN PO KCL. SQ LOVENOX TO ABDOMEN. PATIENT IS SITTING UP IN BED TO EAT BREAKFAST, NO OTHER NEEDS. MRI FORM FAXED TO IMAGING, PATIENT IS UNABLE TO ASSIST WITH THIS INFORMATION.
[2025-02-18] MEDS ORDERED: ENOXAPARIN SODIUM 40 MG/0.4 ML SYR SUB-Q SCH (09:00)
--- NOTE | 2025-02-18 09:00 | NUR ---
UR CLINICAL REVIEW: 2 MN FOR VERSALUS- PER TRACK REPAIR SUPERVISOR MEET OBS FOR LEG PAIN VS CVA MEDICARE OBS 02/17/25 @ 1839 ORDER MATCHES REG NO AUTH REQUIRED PER MEDICARE GUIDELINES DISCHARGE DISPO PENDING FURTHER EVAL 02/19/25
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
--- NOTE | 2025-02-18 09:58 | NUR ---
ECHO COMPLETE. SECOND IV MG RIDER IS INFUSING. PATIENT GIVEN TYLENOL FOR 5/10 NECK PAIN. PATIENT'S VASCULAR TECH IS IN TO VISIT.
--- NOTE | 2025-02-18 10:14 | NUR ---
PATIENT GIVEN WARM PACK FOR NECK. I&O COMPLETE.
--- NOTE | 2025-02-18 10:53 | NUR ---
PATIENT WORKING WITH PT/OT, UP TO BATHROOM AND IN CHAIR WITH CHAIR ALARM. PATIENT IS CONTACT ASSIST WITH FWW.
[2025-02-18] MEDS ORDERED: PHARMACY RENAL DOSE ADJUSTMENT 1 DOSE MISC PO SCH (12:00)
--- NOTE | 2025-02-18 13:41 | NUR ---
PATIENT SITTING UP IN CHAIR AT THIS TIME, VISITOR IN ROOM. VITALS AND I&O'S DONE AND CHARTED. LINENS CHANGED. HOT TEA GIVEN. CALL LIGHT IN REACH. CHAIR ALARM ON. NO FURTHER NEEDS AT THIS TIME.
--- NOTE | 2025-02-18 13:56 | NUR ---
PATIENT NIH IS 2. PATIENT HAS NOTED, UNCHANGED BILATERAL LEG WEAKNESS.
--- NOTE | 2025-02-18 14:15 | NUR ---
Spoke with Ovi by phone he is on his way in. Met son and pts friend in the room. Daughter is on the phone by speaker which friend called. Discussed options of cg in the home, SNF, or IPR if pt qualifies and agrees to placement. Pt states she has money in the bank for cg and wants to go home. Son denies. We reviewed my discussion with Niki from earlier. 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 Son has been spending the night with the pt, but he works. He is gone during the day. We reviewed pts option over 1.5 hour conversation. Pt consistently saying she wants to go home and cont. Home Health. Family are wanting pt to go to a SNF. All agree I can send charts to check for beds. We discussed [employer] Aging and disability and how to apply for a state paid cg. Pt owns a home and does not want a lien placed. Pt does not want to go to an IPR. I notified family and pt I cannot force her to go anywhere she doesn't want to go. I encouraged them to discuss amongst themselves. I will send the chart to [facility], [facility], and [facility] per pts choice letter. Will fu with family and therapy tomorrow. I spoke with PT/OT they are recommending IPR or SNF at this time.
--- NOTE | 2025-02-18 14:25 | NUR ---
PT ASSISTED OUT OF CHAIR TO BRP, VOID 300ML DK YELLOW URINE. PT AMBULATED IN STYLES COMPLETE LOOP AROUND FULL NURSING STATION WITH FWW AND CBA/GAIT BELT. PT SLOW GAIT, LOB X1. TOLERATED WITHOUT DIFFICULTY. RETURNED TO CHAIR, CHAIR ALARM ACTIVATED, WHEELS LOCKED. CALL JENKINS IN REACH. VISITOR AT BEDSIDE.
--- NOTE | 2025-02-18 15:09 | NUR ---
PT NOT AVAILABLE FOR VISIT. PROVIDED PRAYER.
--- NOTE | 2025-02-18 16:12 | NUR ---
PATIENT IS UP IN CHAIR, VISITING WITH FAMILY.
[2025-02-18] MEDS ORDERED: PREVAGEN PO (16:14)
[2025-02-18] MEDS ORDERED: [UNRECOGNIZED DRUG - OTHER] PO (16:15)
--- NOTE | 2025-02-18 16:56 | NUR ---
medications reconciled using pharmacy records and visual inspection of RX bottles
--- NOTE | 2025-02-18 17:04 | NUR ---
PT ASSISTED TO RESTROOM WITH FWW. HAD ALREADY GONE, CHANGED GOWN, WIPED HER DOWN AND CHANGED DEPENDS. CHANGED CALL LIGHT TO BUTTON SHE CAN'T FIGURE OUT THE PADDLE. CHAIR ALARM ON.
--- NOTE | 2025-02-18 17:55 | NUR ---
PATIENT IS UP TO CHAIR AFTER DINNER, RESTING, INTERMITTANTLY SLEEPING.
--- NOTE | 2025-02-18 18:41 | NUR ---
PATIENT SITTING IN CHAIR TALKING ON PHONE. VITALS AND I&O'S DONE AND CHARTED. CALL LIGHT IN REACH. NO FURTHER NEEDS AT THIS TIME.
--- NOTE | 2025-02-18 19:29 | NUR ---
RECEIVED REPORT. PT UP IN RECLINER WITH SUPPORTIVE FAMILY IN ROOM. NO NEEDS PRESETNLY, CALL LIGHT IN REACH
--- NOTE | 2025-02-18 20:43 | NUR ---
ASSESSMENT. REMOVED IV D/T LEAKING, MILD REDNESS AROUND SITE. UNSUCCESSFUL ATTEMPT X2. ASSISTED TO BATHROOM 1PA WITH FWW. [facility]
--- NOTE | 2025-02-18 21:30 | NUR ---
V/S AND I&O'S COMPLETED AND CHARTED. RUTH CARE DONE AND FRESH PUREWICK PLACED. BED ALARM SET ON FOR SAFETY. CALL LIGHT IN PATIENT'S HAND. SON CAME AND SITTING ON THE CHAIR AT BEDSIDE.
--- NOTE | 2025-02-18 21:53 | NUR ---
SON LEFT THE ROOM GOING HOME.
--- NOTE | 2025-02-18 22:31 | NUR ---
CALL LIGHT ANSWERED. 1PA WITH FWW TO RESTROOM. pt REQUIRES CUEING FOR STANDING STRAIGHT AND NAVIGATION TO RESTROOM. ASSISTED BACK TO BED. LEFT ARM PLACED ON PILLOW, IVF INFUSING WNL. PUREWICK IN PLACE. CALL LIGHT AND PERSONAL SUPPLIES IN REACH. BED ALARM ON.
--- NOTE | 2025-02-18 23:05 | NUR ---
RESPONDED TO BEEPING IV. STRAIGHTENED PT ARM AND RESTARTED IV. PT ALERT IN BED, NO NEEDS. CALL LIGHT IN REACH, BED ALARM ACTIVE
--- NOTE | 2025-02-18 23:41 | NUR ---
RESPONDED TO BEEPING IV, PT BENDING ARM. FOUND COLOSTOMY RING AND BAG PARTIALLY DETACHED WITH ESCAPED STOOL. CLEANED PT AND REPLACED GOWN. NEW COLOSTOMY RING AND BAG APPLIED. NO OTHER NEEDS, CALL SUNSHINE NORRIS
[2025-02-19] VITALS (10 sets, daily range): BP systolic 115–144; BP diastolic 55–77
--- NOTE | 2025-02-19 02:17 | NUR ---
PT RESTING IN BED WITH EYES CLOSED, RISE ANDF ALL OF CHEST OBSERVED. CALL LIGHT IN REACH
--- NOTE | 2025-02-19 04:37 | NUR ---
EYES CLOSED, RISEA DN FALL OF CHEST OBSERVED. CALL LIGHT IN REACH, BED ALARM ACTIVE
--- NOTE | 2025-02-19 05:21 | NUR ---
VITALS, I&OS WITH TELEMETRY REGISTERED NURSE. REPLACED IV FLUIDS. PT ASLEEP, THOUGH EASILY AWOKEN. NO OTHER NEEDS, CALL LIGHT IN REACH, BED ALARM ACTIVE
[2025-02-19 05:42] LABS: BASOPHILS 0.9 % (0.1-1.2); HEMATOCRIT 31.8 % (34.1-44.9); HEMOGLOBIN 10.3 g/dL (11.2-15.7); LYMPHOCYTES 15.3 % (19.3-51.7); MCH 29.8 PG (25.6-32.2); MCHC 32.4 g/dL (32.2-35.5); MCV 91.9 fL (79.4-94.8); MONOCYTES 8.4 % (4.7-12.5); NEUTROPHILS 74.2 % (34.0-71.1); PLATELET COUNT 244 K/uL (182-369); RBC 3.46 M/uL (3.93-5.22)
[2025-02-19 05:56] LABS: ALBUMIN 1.9 g/dL (3.4-5.0); ALBUMIN/GLOBULIN RATIO 0.49 (1.1-2.4); ANION GAP 12.8 (7-21); BILIRUBIN, TOTAL 0.3 mg/dL (0.2-1.0); BUN/CREATININE RATIO 14.81 (6.0-28.6); CREATININE, SERUM 0.54 mg/dL (0.55-1.02); MAGNESIUM 1.8 mg/dL (1.8-2.4); POTASSIUM 3.8 mmol/L (3.5-5.1); PROTEIN, TOTAL 5.8 g/dL (6.4-8.2)
--- NOTE | 2025-02-19 07:38 | NUR ---
MORNING REPORT RECIEVED FROM AUSTEN CHANG. PT LAYING IN BED WITH EYES CLOSED CHEST RISE EQUAL BILAT. PT SHOWS NO SIGNS OF DISTRESS AT THIS TIME, CALL LIGHT IN REACH.
--- NOTE | 2025-02-19 08:40 | NUR ---
PT SITTING UP IN BED AT THIS TIME, PT IS EATING BREAKFAST AT THIS TIME, WITH NO CURRENT CONCERNS CALL LIGHT IN REACH AT THIS TIME.
--- NOTE | 2025-02-19 10:02 | NUR ---
SPOKE WITH EMELIA AT [facility], LIKELY THEY CAN ACCEPT PATIENT THE END OF THIS WEEK IF SHE IS AGREEABLE TO SNF.
--- NOTE | 2025-02-19 10:33 | NUR ---
RECIEVED CALL FROM NICHOLAS AT [facility] TO ACCEPT PATIENT WHEN SHE IS READY FOR DC.
--- NOTE | 2025-02-19 10:58 | NUR ---
PATIENT IS CURRENTLY AGREEABLE TO SNF PLACEMENT WHEN MEDICALLY READY. SON, TONI, IN ROOM AND INFORMED SHE HAS BEEN TENTATIVELY ACCEPTED TO [facility] IF THEY HAVE BED AVAILABILITY AT THE END OF THE WEEK AND ACCEPTED TO [facility]. HAVE NOT HEARD FROM [facility], DID REACH OUT AND LEAVE MESSAGE FOR CHRISTIANE AT [facility] TO ENSURE SHE RECIEVED REFERRAL. INFORMED PATIENT AND SON THAT FIRST ACCEPTING FACILITY IS GENERALLY WHERE PATIENTS ARE DISCHARGED. PREFER [facility], SECOND [facility] AND THIRD [facility]. TONI DOES REQUEST THAT BETITO BE UPDATED. NO CONTACT INFORMATION NOTED FOR [facility]ITO IN CHART, SON WILL NOT BE AVAILABLE BY PHONE TODAY HE WILL BE ALEXANDREA.
--- NOTE | 2025-02-19 11:11 | NUR ---
PT SITTING UP IN CHAIR AT THIS TIME, PT DENIES PAIN AT THIS TIME, PT SON ASKED ABOUT PT STATUS AND HOW LONG SHE WILL BE ADMITTED. THE SON WAS INFORMED THAT THIS IS STILL UNKOWN AND CASE MANAGEMENT WILL SPEAK WITH HIM CONSIDERING PLACEMENT AT THIS TIME. PT SON AGREEABLE AND NO FURTHER QUESTIONS.
--- NOTE | 2025-02-19 14:17 | NUR ---
OSTOMY APPLIANCE REPLACED. 2 1/4 SIZE APPLIANCE USED.
--- NOTE | 2025-02-19 14:23 | NUR ---
PT CURRENTLY WORKING WITH PHYSICAL THERAPY AT THIS TIME. PHYSICAL THERAPIST IN ROOM CURRENTLY.
--- NOTE | 2025-02-19 16:29 | NUR ---
PT SITTING UP IN BED AT THIS TIME, PT HAS FAMILY MEMEBER AT BEDSIDE, PT AND FAMILY HAVE NO CONCERNS AT THIS TIME CALL LIGHT IN REACH.
--- NOTE | 2025-02-19 18:26 | NUR ---
PT AMBULATED TO REST ROOM SBA FWW. PT RETURNED TO CHAIR WITH SITTER ALARM ON FOR PT SAFETY. PT HAS CALL BUTTON IN REACH AT THIS TIME.
--- NOTE | 2025-02-19 19:13 | NUR ---
RECEIVED REPORT. PT RESTING IN RECLINER, CHATTING ON PHONE. NO NEEDS, CALL SUNSHINE NORRIS
--- NOTE | 2025-02-19 20:02 | NUR ---
RESPONDED TO CHAIR ALARM. ASSISTED PT FROM CHAIR TO BATHROOM WITH FWW AND CONTACT GUARD ASSIST. BURPED COLOSTOMY BAG. ASSISTED BACK TO CHAIR, CHAIR ALARM ACTIVE. REPLACED TELEMONITOR BATTERY. GIVEN HOT TEA PER REQUEST. NO OTHER NEEDS, CHAIR ALARM ACTIVE, CALL LIGHT IN REACH
--- NOTE | 2025-02-19 21:02 | NUR ---
ASSISTED PT TO BATHROOM, THEN BACK TO BED. GIVEN WARM BLANKETS. ALL POSSESSIONS IN REACH. CALL LIGHT IN REACH, BED ALARM ACTIVE. PT SON IN ROOM
--- NOTE | 2025-02-19 21:29 | NUR ---
daughter zack called and asked to be tranferred to room. pt gave verbal okay for phone transfer. pt now talking to zack.
--- NOTE | 2025-02-19 22:12 | NUR ---
ASSISTED TO BATHROOM, THEN BACK TO BED WITH FWW CONTACT GUARD ASSIST. EMPTIED COLOSTOMY BAG. BED RESTING IN BED WITH POSSESSIONS IN REACH, CALL LIGHT IN REACH, AND BED ALARM ACTIVE.
--- NOTE | 2025-02-19 22:59 | NUR ---
ASSISTED TO BATHROOM WITH FWW. BACK IN BED WATCHING TV, CALL LIGHT IN REACH, BED ALARM ACTIVE
[2025-02-20] VITALS (10 sets, daily range): BP systolic 123–156; BP diastolic 62–80
--- NOTE | 2025-02-20 00:42 | NUR ---
RESPONDED TO BEEPING IV. PT ARM BENT, WRAPPED ARM IN BLANKET AND RESTARTED IV. NO OTHER NEEDS, CALL LIGHT IN REACH, BED ALARM ACTIVE
--- NOTE | 2025-02-20 02:03 | NUR ---
RESPONDED TO BED ALARM. ASSISTED TO BEDSIDE COMMODE AND REPLACED IV FLUIDS. CALL LIGHT IN REACH, BED ALARM ACTIVE
--- NOTE | 2025-02-20 03:34 | NUR ---
bed alarm going off, pt up sba with fww to bsc and voided 400mls. pt back in bed, debby care done and clean attends in place. pt also incontinent of urine. bed alarm resumed and call light in reach.
--- NOTE | 2025-02-20 03:38 | NUR ---
RESPONDED TO BEEPING IV. STRAIGHTENED ARM AND RESTARTED IV. NO NEEDS, CALL SUNSHINE VAZ REACH, BED ALARM ACTIVE
[2025-02-20 05:39] LABS: BASOPHILS 0.7 % (0.1-1.2); EOSINOPHILS 1.7 % (0.7-5.8); HEMATOCRIT 31.9 % (34.1-44.9); HEMOGLOBIN 10.4 g/dL (11.2-15.7); MCH 30.2 PG (25.6-32.2); MCHC 32.6 g/dL (32.2-35.5); MCV 92.7 fL (79.4-94.8); MONOCYTES 9.5 % (4.7-12.5); NEUTROPHILS 74.8 % (34.0-71.1); PLATELET COUNT 279 K/uL (182-369); RBC 3.44 M/uL (3.93-5.22)
--- NOTE | 2025-02-20 05:45 | NUR ---
VITALS, I&OS. BRIM STITCHER ASSISTED TO BATHROOM AND CHANGED BRIEF. WARM BLANKETS PROVIDED, NO OTHER NEEDS. CALL LIGHT IN REACH, BED ALARM ACTIVE
[2025-02-20 05:51] LABS: ANION GAP 11.7 (7-21); CALCIUM 8.7 mg/dL (8.5-10.1); CREATININE, SERUM 0.5 mg/dL (0.55-1.02); POTASSIUM 3.7 mmol/L (3.5-5.1)
--- NOTE | 2025-02-20 07:24 | NUR ---
MORNING REPORT RECIEVED FROM AUSTEN CHANG. PT SITTING UP IN BED, PT JUST RETURNED FROM THE RESTROOM WHERE THEY VOIDED, PT AMBULATED BACK TO BED CGA FWW. PT IS CONFUSED AT BASELINE CONTINUE TO REORIENT. PT CALL LIGHT IN REACH.
--- NOTE | 2025-02-20 08:36 | NUR ---
SBA TO THE BATHROOM WITH FWW. PATIENT IS CURRENTLY SITTING UP IN THEIR CHAIR FOR BREAKFAST WITH CALL LIGHT AND PERSONAL ITEMS WITHIN REACH.
--- NOTE | 2025-02-20 08:42 | NUR ---
P SITTING UP IN CHAIR AT THIS TIME WITH SITTER ALARM IN PLACE. PT HAS NO CURRENT CONCERNS AT THIS TIME, PT HAS CALL LIGHT IN REACH AT THIS TIME.
--- NOTE | 2025-02-20 09:51 | NUR ---
PT AMBULATED HALLS WITH PHYSICAL THERAPY. PT TOLERATED WELL AND PT RETURNED TO BED AT THIS TIME CALL LIGHT IN REACH.
--- NOTE | 2025-02-20 09:55 | NUR ---
PT SITTING UP IN CHAIR AT THIS TIME, PT NEURO ASSESMENT COMPLETED. PT DID WELL PT STILL IS ONLY ORIENTED X2. PT HAS CALL LIGHT IN REACH AT THIS TIME.
[2025-02-20] MEDS ORDERED: ASPIRIN 81 MG CHEW PO SCH (10:09)
[2025-02-20] MEDS ORDERED: ATORVASTATIN 40 MG TAB PO SCH (10:09)
--- NOTE | 2025-02-20 10:38 | NUR ---
PATIENT SHOWERED, BRUSHED TEETH, AND COMBED HAIR WORKING WITH OT. THEY AMBULATED AROUND THE STYLES TWICE WITH PT. BED LINENS AND GOWN WERE CHANGED BY THIS LIVING MANAGER AND ROOM WAS TIDIED.
--- NOTE | 2025-02-20 10:51 | NUR ---
SON CAME TO VISIT WITH PATIENT, ASKED THIS RN FOR UPDATES. INFORMED PT WORKED WITH PT/OT THIS MORNING, WAS ABLE TO AMBULATE 3 LAPS WITH WALKER. PT ALSO WAS SHOWERED. HE WAS STILL HOPING FOR PLACEMENT FOR HER WEAKNESS AT THIS TIME, INFORMED CASE MGMT COULD COME SPEAK WITH HIM, HE STATES HE SHOULD BE BACK THIS AFTERNOON AROUND 4PM. SON INDICATES PT COLOSTOMY DOES THE TELESCOPING PERIODICALLY ON/OFF, WHICH IS HER NORMAL, NOTHING NEW. MD AWARE WELL. PRIMARY RN UPDATED OF INTERACTION.
--- NOTE | 2025-02-20 10:51 | NUR ---
PT NOT AVAILABLE FOR VISIT. PROVIDED PRAYER.
--- NOTE | 2025-02-20 11:20 | NUR ---
Spoke with Niki and Dr. Andres in the room. Pt asking, "how did I end up here". Discussed with pt she has had a stroke. Family and sikh friend would like her to to to a SNF. Pt agrees. Updated we are waiting for a facility to accept her for Fri admission. Pt seems to understand this conversation.
--- NOTE | 2025-02-20 11:31 | NUR ---
PT SITTING UP IN CHAIR AT THIS TIME, PT HAS NO CURRENT CONCERNS AT THIS TIME CALL LIGHT IN REACH.
--- NOTE | 2025-02-20 11:45 | NUR ---
Notified by [facility], they can accept this pt, but will not have a bed open until next week. [facility] has also accepted. I will call the son, to check where they would like this pt to go. I know they had a discussion with the daughter 2 days ago.
--- NOTE | 2025-02-20 11:54 | NUR ---
PT CURRENTLY SITTING UP IN THEIR CHAIR AT THIS TIME. OPTICAL DISPENSER ALARM ON FOR PT SAFETY, PT IS CALM AND CONTENT AND CURRENTLY READING A BOOK AT THIS TIME CALL LIGHT IN REACH.
--- NOTE | 2025-02-20 13:41 | NUR ---
PT SITTING UP IN CHAIR AT THIS TIME PT HAS EYES CLOSED CHEST RISE EQUAL BILAT. PT AROUSABLE TO VOICE. PT IS ORIENTED X2 TO SELF AND PLACE. PT SITTING UP IN CHAIR AT THIS TIME CALL LIGHT IN REACH.
--- NOTE | 2025-02-20 15:30 | NUR ---
Called pts son, Ovi. He would like pt to go to [facility] in [place] on Tuesday. They have friends and family there. Ovi is also working in [place]. I called [facility] and they will accept this pt for Fri. They will transport per their van. They will call Fri AM with a time for transport. I updated Niki and she is somewhat agreeable. She is very concerned about her cat and wants to return home to her cat.
--- NOTE | 2025-02-20 15:42 | NUR ---
PT SITTING UP IN BED AT THIS TIME, PT IS TALKING WITH PARTORAL CARE AT THIS TIME, PT CALL LIGHT IN REACH.
--- NOTE | 2025-02-20 17:07 | NUR ---
SPOKE WITH PT SON KYRA, PT WAS ASKING ABOUT THE POC FOR THE PT KYRA WAS TOLD THAT THE PLAN IS FOR THE PT TO BE PLACE AT [facility] IN [place] ON TUESDAY MORNING, KYRA WAS GREATFUL, AND ALSO NOTED THAT THE PT DAUGHTER WAS ON THEIR WAY TO [facility] TO HELP CARE FOR PT WHEN NEEDED. KYRA HAD NO FURTHER QUESTIONS AT THIS TIME.
--- NOTE | 2025-02-20 17:49 | NUR ---
PATIENT IS IN HER CHAIR AT THIS TIME, CARE COORDINATOR CHARTED VITALS AND I&O'S, FAMILY IS IN THE ROOM VISITING WITH PATIENT. CALL LIGHT WITH IN REACH AND NOTHING ELSE NEEDED AT THIS TIME.
--- NOTE | 2025-02-20 18:05 | NUR ---
PT SITTING UP IN BED AT THIS TIME, PT HAS FAMILY IN ROOM AT THIS TIME, PT HAS NO CONCERNS AND HAS CALL LIGHT IN REACH.
--- NOTE | 2025-02-20 19:10 | NUR ---
REPORT RECEIVED FROM NICOLE BOYCE. pt SITTING THE CHAIR. BOARD UPDATED. pt DENIES ANY OTHER NEEDS AT THIS TIME. CALL LIGHT WITHIN REACH.
[2025-02-20] MEDS ORDERED: OLANZapine 2.5 MG TAB PO SCH (21:00)
[2025-02-20] MEDS ORDERED: METOPROLOL TARTRATE 25 MG TAB PO SCH (21:00)
--- NOTE | 2025-02-20 21:28 | NUR ---
WOOD STRIP BLOCK FLOOR INSTALLER OBTAINED VITALS AND I&O. PT STATES NO NEEDS AT THIS TIME. CALL LIGHT WITHIN REACH.
--- NOTE | 2025-02-20 22:00 | NUR ---
ASSESSMENT AND VITAL SIGNS DONE. pt RESTING IN THE BED. BED ALARM ON. pt A&O TO PLACE AND SELF. PT DENIES ANY OTHER NEEDS AT THIS TIME. CALL LIGHT WITHIN REACH. SCHEDULED MEDS ADMINISTERED.
--- NOTE | 2025-02-20 22:57 | NUR ---
BED ALARM ANSWERED. PT NEEDED TO USE BATHROOM. PT 1PA WITH FWW TO BATHROOM. PT VOIDED AND BRIEFS CHANGED. PT ASSISTED BACK TO BED. PT STATES NO FURTHER NEEDS AT THIS TIME. CALL LIGHT WITHIN REACH AND BED ALARM ON.
[2025-02-21] VITALS (9 sets, daily range): BP systolic 111–137; BP diastolic 63–77
--- NOTE | 2025-02-21 01:50 | NUR ---
pt RESTING THE IN THE BED WITH EYES CLOSED. RR EVEN AND UNLABORED. CALL LIGHT WITHIN REACH.
--- NOTE | 2025-02-21 05:00 | NUR ---
pt RESTING IN THE BED WITH EYES CLOSED. RR EVEN AND UNLABORED. CALL LIGHT WITHIN REACH.
[2025-02-21 05:46] LABS: BASOPHILS 0.9 % (0.1-1.2); EOSINOPHILS 1.7 % (0.7-5.8); HEMATOCRIT 35.3 % (34.1-44.9); HEMOGLOBIN 11.7 g/dL (11.2-15.7); LYMPHOCYTES 19.3 % (19.3-51.7); MCH 29.9 PG (25.6-32.2); MCHC 33.1 g/dL (32.2-35.5); MCV 90.3 fL (79.4-94.8); MONOCYTES 10.1 % (4.7-12.5); NEUTROPHILS 67.8 % (34.0-71.1); PLATELET COUNT 295 K/uL (182-369); RBC 3.91 M/uL (3.93-5.22)
--- NOTE | 2025-02-21 05:46 | NUR ---
OLIVE PICKER IN TO DO VITAL SIGNS. pt A&O' TO SELF AND PLACE. pt UP TO THE BR. pt BACK TO BED. pt DENIES ANY OTHER NEEDS AT THIS TIME. CALL LIGHT WITHIN REACH.
--- NOTE | 2025-02-21 05:47 | NUR ---
PT NEEDED TO USE BATHROOM. TENNIS RACKET REPAIRER 1PA WITH FWW TO BATHROOM. PT ASSISTED WITH PUTTING ON CLEAN BRIEF. PT ASSISTED BACK TO BED. VITALS AND I&O OBTAINED. PT STATES NO FURTHER NEEDS AT THIS TIME. CALL LIGHT WITHIN REACH AND BED ALARM ON.
[2025-02-21 06:00] LABS: ANION GAP 8.9 (7-21); CALCIUM 9.5 mg/dL (8.5-10.1); CREATININE, SERUM 0.5 mg/dL (0.55-1.02); POTASSIUM 3.9 mmol/L (3.5-5.1)
--- NOTE | 2025-02-21 07:35 | NUR ---
RECIEVED REPORT FROM AUSTEN GOEL. PT LYING IN BED RESTING WITH EYES CLOSED, BREATHING EVEN AND UNLABORED. CALL LIGHT WITHIN REACH, BED ALARM ON FOR SAFETY.
--- NOTE | 2025-02-21 08:28 | NUR ---
PATIENT IN BED AT THIS TIME. THIS CHARGE OUT CLERK CHARTED HOURLY ROUNDS. PATIENT REFUSED TO GET UP IN CHAIR FOR BREAKFAST. CALL LIGHT WITHIN REACH, NO FURTHER NEEDS AT THIS TIME.
--- NOTE | 2025-02-21 10:14 | NUR ---
PT NOT AVAILABLE FOR VISIT. PROVIDED PRAYER.
--- NOTE | 2025-02-21 10:20 | NUR ---
PATIENT IN CHAIR AT THIS TIME. MICROSYSTEMS ENGINEER CHARTED VITALS AND I&O'S. THIS MICROSYSTEMS ENGINEER CHANGED PATIENTS LINENS AND PROVIDED FRESH WATER. CALL LIGHT WITHIN REACH, NO FURTHER NEEDS AT THIS TIME.
--- NOTE | 2025-02-21 11:40 | NUR ---
In and spoke with Niki. Update she will go to [facility] tomorrow in [place]. Pt asking frequently, "so I can't go home to my [place]?" Discussed with pt she will go for rehab now and they will have assistance from family to decide where to go after [facility]. Pt agrees to go. Reassured family were involved in decision and will assist her.
--- NOTE | 2025-02-21 11:53 | NUR ---
PT UP TO CHAIR EATING LUNCH INDEPENDENTLY. VISITOR AT THE BEDSIDE. PT DENIES ANY CURRENT NEEDS, CALL LIGHT WITHIN REACH.
--- NOTE | 2025-02-21 12:28 | NUR ---
I PUT TOGETHER A BAG OF OSTOMY SUPPLIES FOR PATIENT BEFORE SHE DISCHARGES TO A FACILITY PER [facility] FROM CASE MANAGMENT
--- NOTE | 2025-02-21 12:53 | NUR ---
PT FAMILY AT THE BEDSIDE. PT'S SON HAS QUESTIONS ABOUT POC, UPDATED WITH PT CONSENT. PT STATES NO FURTHER NEEDS AT THIS TIME, CALL LIGHT WITHIN REACH.
--- NOTE | 2025-02-21 13:09 | NUR ---
PATIENT IN CHAIR AT THIS TIME. THIS WOOD PATTERNMAKER ASSISTED PATIENT TO BATHROOM AND THEN PATIENT WAS ABLE TO BRUSH TEETH INDEPENDENTLY. CALL LIGHT WITHIN REACH, NO FURTHER NEEDS AT THIS TIME.
--- NOTE | 2025-02-21 13:43 | NUR ---
PATIENT IN BED AT THIS TIME. SENIOR HR GENERALIST CHARTED VITALS AND I&O'S. CALL LIGHT WITHIN REACH, NO FURTHER NEEDS AT THIS TIME.
--- NOTE | 2025-02-21 14:57 | NUR ---
PATIENT IN CHAIR AT THIS TIME. THIS HUMAN SERVICE WORKER ASSISTED PATIENT WITH SHOWER, PATIENT WAS PROVIDED NEW BRIEF, SOCKS, AND GOWN. AUSTEN STIENBERG AND AUTSEN MERIDA CAME IN TO CHANGE PATIENTS OSTOMY BAG. HUMAN SERVICE WORKER ASSISTED PATIENT BACK TO CHAIR, PATIENT ABLE TO INDEPENDENTLY BRUSH HAIR. CALL LIGHT WITHIN REACH, NO FURTHER NEEDS AT THIS TIME.
--- NOTE | 2025-02-21 17:25 | NUR ---
PT UP TO RESTROOM WITH SRT AND AUSTEN CHANDLER TO CHANGE GOWN AND BREIFS D/T SOILING. NEW GOWN AND BREIFS IN PLACE.
--- NOTE | 2025-02-21 18:32 | NUR ---
PATIENT IN CHAIR AT THIS TIME. NURSING FACULTY CHARTED VITALS AND I&O'S. CALL LIGHT WITHIN REACH, NO FURTHER NEEDS AT THIS TIME.
--- NOTE | 2025-02-21 19:15 | NUR ---
REPORT RECEIVED FROM ANTON BOYCE. pt RESTING IN THE CHAIR. FAMILY IN THE RM. BOARD UPDATED. pt DENIES ANY OTHER NEEDS AT THIS TIME. CALL LIGHT WITHIN REACH.
--- NOTE | 2025-02-21 20:04 | NUR ---
CALL LIGHT ANSWERED. PT NEEDED TO USE BATHROOM. SALES REPRESENTATIVE BUSINESS COURSES 1PA WITH FWW TO BATHROOM. PT VOIDED AND ASSISTED BACK TO CHAIR. PT GIVEN SNACK UPON REQUEST. PT STATES NO FURTHER NEEDS AT THIS TIME. CALL LIGHT WITHIN REACH AND CHAIR ALARM ON.
--- NOTE | 2025-02-21 20:54 | NUR ---
INDUSTRIAL PSYCHOLOGIST OBTAINED VITALS AND I&O. PT STATES NO NEEDS AT THIS TIME. CALL LIGHT WITHIN REACH AND CHAIR ALARM ON.
--- NOTE | 2025-02-21 21:20 | NUR ---
ASSESSMENT AND VITAL SIGNS DONE. pt UP TO THE BR. pt BACK TO THE BED. SBA WITH FWW. SCHEDULED MEDS ADMINISTERED. WATER REFRESHED. pt DENIES ANY OTHER NEEDS AT THIS TIME. CALL LIGHT WITHIN REACH.
--- NOTE | 2025-02-21 22:38 | NUR ---
pt RESTING IN THE BED. pt SON VISITING. pt DENIES ANY OTHER NEEDS AT THIS TIME. CALL LIGHT WITHIN REACH.
--- NOTE | 2025-02-21 23:20 | NUR ---
CALL LIGHT ANSWERED. PT NEEDED TO USE BATHROOM. PHOTONICS ENGINEERING TECHNOLOGIST 1PA WITH FWW TO BATHROOM. PT VOIDED AND ASSISTED WITH CLEAN BRIEF. PT ASSISTED BACK TO BED. PT STATES NO FURTHER NEEDS AT THIS TIME. CALL LIGHT WITHIN REACH AND BED ALARM ON.
--- NOTE | 2025-02-22 00:18 | NUR ---
pt RESTING IN THE BED WITH EYES CLOSED. RR EVEN AND UNLABORED. CALL LIGHT WITHIN REACH.
--- NOTE | 2025-02-22 02:36 | NUR ---
pt RESTING IN THE BED WITH EYES CLOSED. RR EVEN AND UNLABORED. CALL LIGHT WITHIN REACH.
[2025-02-22 05:24] LABS: BASOPHILS 0.8 % (0.1-1.2); EOSINOPHILS 1.2 % (0.7-5.8); HEMATOCRIT 32.9 % (34.1-44.9); HEMOGLOBIN 10.8 g/dL (11.2-15.7); LYMPHOCYTES 14.5 % (19.3-51.7); MCH 29.8 PG (25.6-32.2); MCHC 32.8 g/dL (32.2-35.5); MCV 90.6 fL (79.4-94.8); MONOCYTES 11.9 % (4.7-12.5); NEUTROPHILS 71.4 % (34.0-71.1); PLATELET COUNT 272 K/uL (182-369); RBC 3.63 M/uL (3.93-5.22)
[2025-02-22 05:34] LABS: ANION GAP 5.8 (7-21); BUN/CREATININE RATIO 21.66 (6.0-28.6); CALCIUM 8.9 mg/dL (8.5-10.1); CREATININE, SERUM 0.6 mg/dL (0.55-1.02); POTASSIUM 3.8 mmol/L (3.5-5.1)
[2025-02-22 06:03] VITALS: BP 127/73
[2025-02-22 06:06] VITALS: BP 127/73
--- NOTE | 2025-02-22 06:10 | NUR ---
IN RM TO DO VITAL SIGNS. pt RESTING IN THE BED. BED ALARM ON. pt DENIES ANY OTHER NEEDS AT THIS TIME. CALL LIGHT WITHIN REACH.
--- NOTE | 2025-02-22 07:21 | NUR ---
REPORT RECEIVED FROM AUSTEN GOEL. PATIENT RESTING IN BED WITH EYES CLOSED, RR EVEN AND UNLABORED. BED IN LOWEST POSITION WITH BED ALARM ON, CALL LIGHT AND PERSONAL BELONGINGS IN REACH.
[2025-02-22 08:39] VITALS: BP 136/75
--- NOTE | 2025-02-22 08:41 | NUR ---
PATIENT IS UP IN HER CHAIR AT THIS TIME, SHE JUST FINISHED HER BREAKFAST, ANALYTICAL TECH CHARTED VITALS AND I&O'S, CHANGED BEDDING AND PROVIDED A NEW GOWN. CALL LIGHT WITH IN REACH AND NOTHING ELSE NEEDED AT THIS TIME.
--- NOTE | 2025-02-22 09:23 | NUR ---
SPOKE WITH PATIENT AND IMM LETTER SIGNED. REMINDED HER SHE WILL BE GOING TO [facility] AT [place]. [facility] AT [facility] STATES THEY CAN PICK PATIENT UP AT 11:00 THIS AM.
--- NOTE | 2025-02-22 09:26 | NUR ---
CALLED TO NOTIFY KYRA, SON. UNABLE TO LEAVE MESSAGE AT THIS TIME. WILL REATTEMPT TO CONTACT KYRA PRIOR TO DC.
[2025-02-22] MEDS ORDERED: ATORVASTATIN CA40 MG PO (10:05)
[2025-02-22 10:43] VITALS: BP 118/73
--- NOTE | 2025-02-22 10:47 | NUR ---
PATIENT IS IN HER CHAIR AT THIS TIME READY TO GO, I ASSISTED PATIENT TO THE RESTROOM, GOT HER DRESSED, BRUSHED HER TEETH AND DENTURES.
--- NOTE | 2025-02-22 10:51 | NUR ---
THIS VETERINARY LABORATORY TECHNICIAN REMOVED PATIENTS IV CCATHETER PER RN MINDIS REQUEST.
== END 2025-02-22 10:50 | DRG 65 ==
LOC: ED 12:30 → MS 12:31
PROVIDERS: Emergency Medicine; ADMIT Family Medicine; ATTEND Family Medicine
DX: I63.532 Cerebral infarction due to unspecified occlusion or stenosis of left posterior cerebral artery (principal); K94.09 Other complications of colostomy; S22.088A Other fracture of T11-T12 vertebra, initial encounter for closed fracture; R44.3 Hallucinations, unspecified; F03.90 Unspecified dementia, unspecified severity, without behavioral disturbance, psychotic disturbance, mood disturbance, and anxiety; E78.5 Hyperlipidemia, unspecified; M41.9 Scoliosis, unspecified; R29.702 NIHSS score 2; G83.11 Monoplegia of lower limb affecting right dominant side; M25.551 Pain in right hip; E87.6 Hypokalemia; R47.81 Slurred speech; E83.42 Hypomagnesemia; M81.0 Age-related osteoporosis without current pathological fracture; Z98.890 Other specified postprocedural states; Z88.5 Allergy status to narcotic agent; Z79.82 Long term (current) use of aspirin; Z87.19 Personal history of other diseases of the digestive system; Z79.899 Other long term (current) drug therapy; W19.XXXA Unspecified fall, initial encounter
CPT/HCPCS: 36415; 70450; 70496; 70498; 70551; 71045; 72080; 73502; 80048; 80053; 80061; 81001; 83036; 83605; 83735; 84100; 85025; 92507; 92523; 92526; 93005; 93010; 93306; 97116; 97162; 97166; 97530; 97535; A9270; J1650; J3475; J7030; Q9967

== ENCOUNTER 2025-06-18 15:47 | Emergency (ER) | payer MEDICARE, OTHER ==
[~2025-06-18] VITALS: Ht 144.8 cm; Wt 37.6 kg
[~2025-06-18 15:47] MED LIST changes: +OLANZAPINE2.5 MG PO; +PREVAGEN PO; +[UNRECOGNIZED DRUG - OTHER] PO
[2025-06-18 18:03] VITALS: BP 141/92
== END 2025-06-18 17:51 | disposition home or self-care (01) ==
LOC: ED 15:47
DX: K94.09 Other complications of colostomy (principal); E78.5 Hyperlipidemia, unspecified; M81.0 Age-related osteoporosis without current pathological fracture; Z98.890 Other specified postprocedural states; Z90.49 Acquired absence of other specified parts of digestive tract; Z86.73 Personal history of transient ischemic attack (TIA), and cerebral infarction without residual deficits; Z88.5 Allergy status to narcotic agent; Z79.899 Other long term (current) drug therapy
CPT/HCPCS: 99283

== ENCOUNTER 2025-08-15 06:09 | Emergency (ER) | payer OTHER, MEDICARE ==
[~2025-08-15] VITALS: Ht 144.8 cm; Wt 39.7 kg
--- OUTSIDE RECORDS SUMMARY | ~2025-08-15 | XMS | Continuity of Care Document ---
Demographics + + + | Address | [address] | | | [place] [address] | + + + | Preferred Language | Unknown | + + + | Marital Status | | + + + | Mosque Affiliation | Unknown | + + + | Race | White | + + + | Ethnic Group | Not or | + + + Author + + + | Author | [facility] | + + + | Organization | [facility] | + + + | Address | [address] | | | [place] [address] | + + + | Phone | | + + + Care Team Providers + + + + | Care Telephone Cleaner Name | Role | Phone | + + + + Unavailable | Unavailable | + + + + Unavailable | Unavailable | + + + + Allergies and Intolerances + + + + + + | date | description | facility | reaction | severity | + + + + + + | 2025-07-05 | Hydrocodone | [facility] - | Hallucinations | (no severity) | | 00:00 | | [facility] | | | + + + + + + | 2025-07-05 | Codeine | [facility] - | Confusion | Mild | | 00:00 | | [facility] | | | + + + + + + | 2025-07-05 | Codeine | [facility] - | Confusion | Mild | | 00:00 | | [facility] | | | + + + + + + | 2025-07-05 | Hydrocodone | [facility] - | Hallucinations | (no severity) | | 00:00 | | [facility] | | | + + + + + + | 2025-07-05 | Hydrocodone | [facility] - | Hallucinations | (no severity) | | 00:00 | | [facility] | | | + + + + + + | 2025-07-05 | Codeine | [facility] - | Confusion | Mild | | 00:00 | | [facility] | | | + + + + + + Encounters No information. Functional Status No information. Immunizations No information. Medications + + + + | date | description | facility | + + + + | (no date) | CHOLECALCIFEROL (VITAMIN | [facility] | | D3) | [facility] | + + + + | (no date) | CYANOCOBALAMIN (VITAMIN | [facility] | | | B-12) | [facility] | + + + + | (no date) | OMEPRAZOLE | [facility] | | | | [facility] | + + + + | (no date) | OLANZAPINE | [facility] | | | [facility] | + + + + | (no date) | ASPIRIN | [facility] | | | | [facility] | + + + + | (no date) | ATORVASTATIN CALCIUM | [facility] | | | | [facility] | + + + + | (no date) | METOPROLOL TARTRATE | [facility] | | | | [facility] | + + + + | (no date) | ALENDRONATE SODIUM | [facility] | | | | [facility] | + + + + Problems + + + + | date | description | facility | + + + + | 2025-06-18 00:00 | Intestinal stoma prolapse | [facility] | | | | [facility] | + + + + | 2025-07-05 00:00 | Encounter for medical | [facility] | | | screening examination | [facility] | + + + + Procedures No information. Results/Labs No information. Social History +--------+ + + | date | description | facility | +--------+ + + Vital Signs + + + +---------+ | date | measurement | value | units | + + + +---------+ | 2025-06-18 00:00 | BMI | 17.9 | kg/m2 | + + + +---------+ | 2025-06-18 00:00 | BP_diastolic | 92 | mmHg | + + + +---------+ | 2025-06-18 00:00 | BP_systolic | 141 | mmHg | + + + +---------+ | 2025-06-18 00:00 | heart_rate | 61 | /min | + + + +---------+ | 2025-06-18 00:00 | height_metric | 144.78 | cm | + + + +---------+ | 2025-06-18 00:00 | height_standard | 57 | in | + + + +---------+ | 2025-06-18 00:00 | o2_saturation | 98 | % | + + + +---------+ | 2025-06-18 00:00 | respiration_rate | 14 | /min | + + + +---------+ | 2025-06-18 00:00 | | 98.3 | F | | | temperature_standar | | | | | d | | | + + + +---------+ | 2025-06-18 00:00 | weight_metric | 37.6 | kg | + + + +---------+ | 2025-06-18 00:00 | weight_standard | 82.893 | lb | + + + +---------+ | 2025-07-05 00:00 | BMI | 18.9 | kg/m2 | + + + +---------+ | 2025-07-05 00:00 | BP_diastolic | 81 | mmHg | + + + +---------+ | 2025-07-05 00:00 | BP_systolic | 157 | mmHg | + + + +---------+ | 2025-07-05 00:00 | heart_rate | 55 | /min | + + + +---------+ | 2025-07-05 00:00 | height_metric | 144.78 | cm | + + + +---------+ | 2025-07-05 00:00 | height_standard | 57 | in | + + + +---------+ | 2025-07-05 00:00 | o2_saturation | 98 | % | + + + +---------+ | 2025-07-05 00:00 | respiration_rate | 15 | /min | + + + +---------+ | 2025-07-05 00:00 | | 97.8 | F | | | temperature_standar | | | | | d | | | + + + +---------+ | 2025-07-05 00:00 | weight_metric | 39.701 | kg | + + + +---------+ | 2025-07-05 00:00 | weight_standard | 87.525 | lb | + + + +---------+"
[2025-08-15 07:00] LABS: BASOPHILS 0.7 % (0.1-1.2); EOSINOPHILS 1.0 % (0.7-5.8); LYMPHOCYTES 20.6 % (19.3-51.7); MCH 28.4 PG (25.6-32.2); MCHC 32.4 g/dL (32.2-35.5); MCV 87.4 fL (79.4-94.8); MONOCYTES 12.8 % (4.7-12.5); NEUTROPHILS 64.8 % (34.0-71.1); RBC 4.30 M/uL (3.93-5.22)
[2025-08-15 07:11] LABS: ALT (SGPT) 25.0 U/L (14-59); AST (SGOT) 26.0 U/L (15-37); GLOMERULAR FILTRATION RATE,EST 93.0 mL/min (>60); PROTEIN, TOTAL 6.5 g/dL (6.4-8.2); UREA NITROGEN 15.0 mg/dL (7-18)
[2025-08-15] MEDS ORDERED: ACETAMINOPHEN 325 MG TAB PO ONE (07:15)
[2025-08-15 08:03] VITALS: BP 142/76
== END 2025-08-15 08:01 | disposition home or self-care (01) ==
LOC: ED 06:09
PROVIDERS: Internal Medicine
DX: S63.502A Unspecified sprain of left wrist, initial encounter (principal); E78.5 Hyperlipidemia, unspecified; Z88.5 Allergy status to narcotic agent; Z88.8 Allergy status to other drugs, medicaments and biological substances; Z79.82 Long term (current) use of aspirin; W01.0XXA Fall on same level from slipping, tripping and stumbling without subsequent striking against object, initial encounter
CPT/HCPCS: 36415; 73110; 80053; 84550; 85025; 99283; A9270